=== PATIENT | male | born 1955 | race Caucasian/White ===

== ENCOUNTER 2017-05-31 15:28 | Inpatient (IN) | payer OTHER ==
--- NOTE | 2017-05-31 15:40 | CPEKG ---
Heart Rate: 77 RR Interval: 779 P-R Interval: 200 QRSD Interval: 98 QT Interval: 396 QTC Interval: 449 P Cross: 53 QRS Cross: -47 T Wave Cross: 25 EKG Severity - ABNORMAL ECG - EKG Impression: SINUS RHYTHM EKG Impression: PROBABLE LEFT ATRIAL ABNORMALITY EKG Impression: LEFT ANTERIOR FASCICULAR BLOCK EKG Impression: CONSIDER ANTEROSEPTAL INFARCT Electronically Signed By: Rashida Thomas 31-May-2017 22:33:45
[2017-05-31] MEDS ORDERED: ASPIRIN 81 MG CHEWABLE TAB PO ONE (15:41)
[2017-05-31] MEDS ORDERED: NS 500 ML IV ONE (15:41)
[2017-05-31] MEDS ORDERED: NITROGLYCERIN 2% 1 GM PACKET TP ONE (15:41)
[2017-05-31] MEDS ORDERED: HEPARIN 10,000 UNIT/10 ML MDV (1,000 UNIT/ML) IVP ONE (15:42)
[2017-05-31] MEDS ORDERED: HEPARIN/DEXTROSE 500 ML IV ONE (15:42)
[2017-05-31 15:51] LABS: PLATELET COUNT 155 10^3/uL (150-400)
--- NOTE | 2017-05-31 15:59 | EDPHY ---
H & P Time Seen by Provider: 05/31/17 15:38 HPI/ROS: HPI Chest pain. 61-year-old male by private vehicle. Patient has a history of coronary artery disease with RCA and LAD stents placed in the [facility]. Reports chest pain 2 weekends ago at rest while sleeping described as left upper chest dull aching radiation into the left shoulder and left arm. Reports a similar episode of chest pain this weekend while at rest but not as severe. Had blood work done yesterday at [facility]. 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 His troponin was elevated on yesterday's blood draw at 0.2. Dr. Massey of [facility] is planning on taking him to the research lab assistant tomorrow. Currently the patient describe some mild discomfort in his left arm but no chest pain and no shortness of breath. Cardiology has requested that we start the patient on a heparin drip in the emergency department, apply 1 in of nitropaste to his chest wall, repeat EKG and blood work and admit him to the hospitalist service. His blood pressure was noted to be high this morning. He takes 25 mg of metoprolol and 10 mg of lisinopril daily. Prior to coming to the emergency department his physician asked him to take his usual dose of metoprolol and lisinopril which she did. ROS: Constitutional: No fever, no chills. No weakness. Eyes: No discharge. No changes in vision. ENT: No sore throat. No nasal congestion or rhinorrhea. Respiratory: No cough. No shortness of breath. Cardiac: As above, no palpitations. Gastrointestinal: No abdominal pain, no vomiting, no diarrhea. Genitourinary: No hematuria. No dysuria or increased frequency with urination. Musculoskeletal: No back pain. No neck pain. As above. No myalgias or arthralgias. Skin: No rashes. Neurological: No headache. No focal weakness or altered sensation. Past medical history: As above. Also includes type 1 diabetes, hypertension, macular degeneration. Social history: He is here by himself. Nonsmoker. Denies alcohol. He recently moved to this area from the [facility]. All of his previous care was in the [facility]. Physical Exam: General Appearance: Alert, no distress. Large man, obese habitus. This patient is responding to questions appropriately and in full sentences. This patient appears well-hydrated and well-nourished. Eyes: Pupils equal and round no pallor or injection. No lid edema, erythema or injection. Respiratory: There are no retractions, lungs are clear to auscultation with good air movement bilaterally. Cardiovascular: Regular rate and rhythm. Heart sounds are distant. No murmur. Gastrointestinal: Abdomen is soft and nontender, no masses, bowel sounds normal. No focal tenderness at McBurney's point. No Johnson sign. Neurological: Motor sensory function is grossly intact. Cranial nerves are normal. Gait is normal. Skin: Warm and dry, no rashes. Musculoskeletal: Neck is supple and nontender. Extremities are symmetrical. All joints range without pain or impingement. Psychiatric: No agitation. No depression. Database: EKG: EKG time is 3:38 p.m.; EKG shows a narrow complex normal sinus rhythm with a ventricular rate of 77. The NM, QRS, QT intervals are within normal limits. There are no ST-T wave changes indicative of ischemic or injury pattern. QS waves noted in V1 and V2. Left anterior fascicular block noted. No evidence of right heart strain. Interpreted by me. Imaging: Chest x-ray AP portable; the cardiac mediastinal silhouette is unremarkable. No evidence of infiltrate or pneumothorax. No acute cardiopulmonary disease process noted. Interpreted by me. Procedures: Emergency department course: IV placed. Vital signs were reviewed. Patient given 324 mg of chewed aspirin. 1 inch of nitropaste applied to the chest wall. Patient will be started on IV heparin shortly. EKG obtained and reviewed by myself. 5:45 p.m., patient re-evaluated, resting comfortably at this time. Results of emergency department workup discussed. He is currently on his heparin drip. He does not have any chest pain currently. 5:50 p.m., spoke with on-call hospitalist, Dr. Kang, case discussed in detail with him. He accepts this patient for admission. Cardiology to consult. Patient scheduled for PCI tomorrow. Patient admitted in stable and improved condition to telemetry. Differential Diagnosis: The differential diagnosis on this patient includes but is not limited to acute coronary syndrome, myocardial infarction. Aortic dissection, myocarditis, pericarditis, pulmonary embolism unlikely. This represents a partial list of diagnoses considered. These considerations are based on history, physical exam , past history, reassessment and diagnostic testing. Smoking Status: Never smoked Constitutional: Initial Vital Signs Temperature (C) 36.8 C 05/31/17 15:40 Heart Rate 78 05/31/17 15:40 Respiratory Rate 16 05/31/17 15:40 Blood Pressure 158/91 H 05/31/17 15:40 O2 Sat (%) 99 05/31/17 15:40 O2 Delivery Mode Room Air Allergies/Adverse Reactions: cyclobenzaprine [From Flexeril] Allergy (Verified 05/31/17 15:37) Rsskdtt-[id number]-[id number] Reductase Inhibitor Allergy (Verified 05/31/17 15:37) Home Medications: Medication Instructions Recorded Lantus 05/31/17 novoLOG 05/31/17 traMADol 05/31/17 Medical Decision Making - Diagnostics Imaging Results: Imaging Impressions Chest X-Ray 05/31/17 15:42 Impression: Chest negative for acute cardiopulmonary abnormality. Peribronchial thickening may reflect airways disease. - Data Points Laboratory Results: Laboratory Results 05/31/17 15:43 05/31/17 15:43 05/31/17 05/31/17 05/31/17 15:43 15:43 15:43 WBC 8.42 10^3/uL 10^3/uL (3.80-9.50) RBC 4.95 10^6/uL 10^6/uL (4.40-6.38) Hgb 16.3 g/dL g/dL (13.7-17.5) Hct 46.1 % % (40.0-51.0) MCV 93.1 fL fL (81.5-99.8) MCH 32.9 pg pg (27.9-34.1) MCHC 35.4 g/dL g/dL (32.4-36.7) RDW 12.4 % % (11.5-15.2) Plt Count 155 10^3/uL 10^3/uL (150-400) MPV 8.9 fL fL (8.7-11.7) Neut % (Auto) 46.5 % % (39.3-74.2) Lymph % (Auto) 40.6 % % (15.0-45.0) [place] % (Auto) 9.3 % % (4.5-13.0) Eos % (Auto) 2.6 % % (0.6-7.6) Baso % (Auto) 0.8 % % (0.3-1.7) Nucleat RBC Rel Count 0.0 % % (0.0-0.2) Absolute Neuts (auto) 3.91 10^3/uL 10^3/uL (1.70-6.50) Absolute Lymphs (auto) 3.42 10^3/uL H 10^3/uL (1.00-3.00) Absolute Monos (auto) 0.78 10^3/uL 10^3/uL (0.30-0.80) Absolute Eos (auto) 0.22 10^3/uL 10^3/uL (0.03-0.40) Absolute Basos (auto) 0.07 10^3/uL 10^3/uL (0.02-0.10) Absolute Nucleated RBC 0.00 10^3/uL 10^3/uL (0-0.01) Immature Gran % 0.2 % % (0.0-1.1) Immature Gran # 0.02 10^3/uL 10^3/uL (0.00-0.10) PT 13.5 SEC SEC (12.0-15.0) INR 1.01 (0.83-1.16) APTT 29.2 SEC SEC (23.0-38.0) Sodium 141 mEq/L mEq/L (135-145) Potassium 4.2 mEq/L mEq/L (3.5-5.2) Chloride 104 mEq/L mEq/L (97-110) Carbon Dioxide 23 mEq/l mEq/l (22-31) Anion Gap 14 mEq/L mEq/L (8-16) BUN 11 mg/dL mg/dL (7-23) Creatinine 0.8 mg/dL mg/dL (0.7-1.3) Estimated GFR > 60 Glucose 103 mg/dL H mg/dL (70-100) Calcium 9.5 mg/dL mg/dL (8.5-10.4) Creatine Kinase 246 IU/L H IU/L (0-224) CK-MB (CK-2) Fraction 3.55 ng/mL H ng/mL (0.00-3.19) CK-MB (CK-2) % 1.4 % % (0.0-4.0) Creatine Kinase Interp NEGATIVE (NEGATIVE) Troponin I 0.104 ng/mL H ng/mL (0.000-0.034) Medications Given: Discontinued Medications Aspirin (Aspirin) 324 mg PO EDNOW ONE Stop: 05/31/17 15:42 Last Admin: 05/31/17 15:58 Dose: 324 mg Heparin Sodium (Porcine) (Heparin Injection) 0 unit IVP EDNOW ONE PRN Reason: Protocol Stop: 05/31/17 15:43 Last Admin: 05/31/17 16:07 Dose: 7,000 units Sodium Chloride (Ns) 500 mls @ 1,000 mls/hr IV EDNOW ONE PRN Reason: Protocol Stop: 05/31/17 16:10 Last Admin: 05/31/17 17:13 Dose: 500 mls Heparin Sodium (Porcine) (Heparin 50 Units/Ml (Premix)) 500 mls @ 0 mls/hr IV EDNOW ONE; Per Protocol PRN Reason: Protocol Stop: 05/31/17 15:43 Last Admin: 05/31/17 16:08 Dose: 500 mls Nitroglycerin (Nitro-Bid 2%) 1 inch TP EDNOW ONE Stop: 05/31/17 15:42 Last Admin: 05/31/17 15:57 Dose: 1 inch Departure - Departure Disposition: [facility] Inpatient Acute Clinical Impression: Chest pain, History of coronary artery disease Referrals: Danny Abernathy MD [Primary Care Provider] - As per Instructions
[2017-05-31 16:03] LABS: INR 1.01 (0.83-1.16); PROTIME(PATIENT) 13.5 SEC (12.0-15.0)
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
[2017-05-31 17:10] LABS: CREATINE KINASE 246 IU/L (0-224)
[2017-05-31] MEDS ORDERED: D50W 25 GM/50 ML VIAL IVP PRN (18:50)
[2017-05-31] MEDS ORDERED: ACETAMINOPHEN 325 MG TAB PO PRN (18:51)
[2017-05-31] MEDS ORDERED: ONDANSETRON DISINTEGRATING 4 MG TAB PO PRN (18:51)
[2017-05-31] MEDS ORDERED: ONDANSETRON 4 MG/2 ML VIAL IVP PRN (18:51)
[2017-05-31] MEDS ORDERED: HEPARIN 10,000 UNIT/10 ML MDV (1,000 UNIT/ML) IVP PRN (18:52)
[2017-05-31] MEDS ORDERED: HEPARIN/DEXTROSE 500 ML IV SCH (19:00)
--- NOTE | 2017-05-31 19:26 | PDGENHP ---
History and Physical - Chief Complaint CP, abnormal troponin - History of Present Illness This is a morbidly obese male with hx of CAD and DMII who has been having CP over the past few weeks and had a Trop with a level of 0.2 that came back to his PCP today and he was told to present to the E.D. He has a hx of multi vessel disease and [place]. He recently moved from [place] to [place]. He was seen by Cards in the E.D. and he will have a Cath tomorrow. Trop here is 0.104. EKG shows some q waves in the inferior and lateral leads. 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: early CV disease Data/labs: per above History Information - Allergies/Home Medication List Allergies/Adverse Reactions: cyclobenzaprine [From Flexeril] Allergy (Verified 05/31/17 15:37) Cwbbygv-Sko-Waf Reductase Inhibitor Allergy (Verified 05/31/17 15:37) Home Medications: Lantus 05/31/17 [Last Taken Unknown] novoLOG 05/31/17 [Last Taken Unknown] traMADol 05/31/17 [Last Taken Unknown] I have personally reviewed and updated: medical history, social history - Social History Smoking Status: Never smoked Review of Systems Review of Systems: ROS: 10pt was reviewed & negative except for what was stated in HPI & below Physical Exam Physical Exam: Temp Pulse Resp BP Pulse Ox 36.6 C 72 18 142/86 H 96 05/31/17 18:38 05/31/17 18:38 05/31/17 18:38 05/31/17 18:38 05/31/17 18:38 Constitutional: no apparent distress Eyes: PERRL, EOMI Ears, Nose, Mouth, Throat: moist mucous membranes, hearing normal Cardiovascular: regular rate and rhythym, No JVD, No edema Respiratory: no respiratory distress, no rales or rhonchi Gastrointestinal: normoactive bowel sounds, soft, non-tender abdomen Skin: warm Musculoskeletal: full muscle strength Neurologic: AAOx3 Psychiatric: interacting appropriately, not anxious, not encephalopathic, thought process linear Lab Data & Imaging Review 05/31/17 15:43 05/31/17 15:43 WBC 8.42 10^3/uL (3.80-9.50) 05/31/17 15:43 RBC 4.95 10^6/uL (4.40-6.38) 05/31/17 15:43 Hgb 16.3 g/dL (13.7-17.5) 05/31/17 15:43 Hct 46.1 % (40.0-51.0) 05/31/17 15:43 MCV 93.1 fL (81.5-99.8) 05/31/17 15:43 MCH 32.9 pg (27.9-34.1) 05/31/17 15:43 MCHC 35.4 g/dL (32.4-36.7) 05/31/17 15:43 RDW 12.4 % (11.5-15.2) 05/31/17 15:43 Plt Count 155 10^3/uL (150-400) 05/31/17 15:43 MPV 8.9 fL (8.7-11.7) 05/31/17 15:43 Neut % (Auto) 46.5 % (39.3-74.2) 05/31/17 15:43 Lymph % (Auto) 40.6 % (15.0-45.0) 05/31/17 15:43 [place] % (Auto) 9.3 % (4.5-13.0) 05/31/17 15:43 Eos % (Auto) 2.6 % (0.6-7.6) 05/31/17 15:43 Baso % (Auto) 0.8 % (0.3-1.7) 05/31/17 15:43 Nucleat RBC Rel Count 0.0 % (0.0-0.2) 05/31/17 15:43 Absolute Neuts (auto) 3.91 10^3/uL (1.70-6.50) 05/31/17 15:43 Absolute Lymphs (auto) 3.42 10^3/uL (1.00-3.00) H 05/31/17 15:43 Absolute Monos (auto) 0.78 10^3/uL (0.30-0.80) 05/31/17 15:43 Absolute Eos (auto) 0.22 10^3/uL (0.03-0.40) 05/31/17 15:43 Absolute Basos (auto) 0.07 10^3/uL (0.02-0.10) 05/31/17 15:43 Absolute Nucleated RBC 0.00 10^3/uL (0-0.01) 05/31/17 15:43 Immature Gran % 0.2 % (0.0-1.1) 05/31/17 15:43 Immature Gran # 0.02 10^3/uL (0.00-0.10) 05/31/17 15:43 PT 13.5 SEC (12.0-15.0) 05/31/17 15:43 INR 1.01 (0.83-1.16) 05/31/17 15:43 APTT 29.2 SEC (23.0-38.0) 05/31/17 15:43 Sodium 141 mEq/L (135-145) 05/31/17 15:43 Potassium 4.2 mEq/L (3.5-5.2) 05/31/17 15:43 Chloride 104 mEq/L (97-110) 05/31/17 15:43 Carbon Dioxide 23 mEq/l (22-31) 05/31/17 15:43 Anion Gap 14 mEq/L (8-16) 05/31/17 15:43 BUN 11 mg/dL (7-23) 05/31/17 15:43 Creatinine 0.8 mg/dL (0.7-1.3) 05/31/17 15:43 Estimated GFR > 60 05/31/17 15:43 Glucose 103 mg/dL (70-100) H 05/31/17 15:43 Calcium 9.5 mg/dL (8.5-10.4) 05/31/17 15:43 Creatine Kinase 246 IU/L (0-224) H 05/31/17 15:43 CK-MB (CK-2) Fraction 3.55 ng/mL (0.00-3.19) H 05/31/17 15:43 CK-MB (CK-2) % 1.4 % (0.0-4.0) 05/31/17 15:43 Creatine Kinase Interp NEGATIVE (NEGATIVE) 05/31/17 15:43 Troponin I 0.104 ng/mL (0.000-0.034) H 05/31/17 15:43 Assessment & Plan Assessment: # Unstable Angina # CAD # Abnormal Trop # HTN # DMII, insulin dependent # Bilateral nguyễn to feet (recent) # Peripheral neuropathy due to DM Plan: Admit Plan for Cath tomorrow in the meanwhile, we will continue Heparin which was started in the E.D Serial enzymes, TTE, telemety Aspirin received in the E.D. Diet for now but NPO at midnight Will cover with Lantus tonigh 20 units he reports his dose is 20 units bid. meds list is still being obtained and will need to be reconciled check labs for risk factors Wound care Total CCT in this high risk patient with unstable angina requiring anticoagulation is 45 minutes
[2017-05-31] MEDS: INSULIN GLARGINE 100 UNITS/ML UNIT SC SCH (20:52)
[2017-05-31] MEDS: NITROGLYCERIN 2% 1 GM PACKET TP SCH (20:53)
[2017-06-01] MEDS: NITROGLYCERIN 2% 1 GM PACKET TP SCH ×3 (02:04→15:39)
[2017-06-01 06:47] LABS: PLATELET COUNT 142 10^3/uL (150-400)
[2017-06-01] MEDS: INSULIN LISPRO 100 UNIT/ML SC SCH ×3 (09:50→17:41)
--- NOTE | 2017-06-01 10:22 | HOSPPROG ---
Hospitalist Progress Note Assessment/Plan: #Unstable angina: Cath today with 3 DE S to posterior descending artery -Plavis, ASA, BB, statin #Diabetes: glargine, SSI #HTN: controlled on home meds #Morbid obesity: counseled on diet and exercise #HLD: statin #Neuropathy #h/o CVA: statin, ASA, BB #Diet: cardiac #Disp: warrants inpt admission for cath and post-procedure telemetry. Can DC tomorrow if clinically stable Subjective: s/p cath with no CP Objective: Vital Signs Temp Pulse Resp BP Pulse Ox 36.6 C 72 16 98/50 L 97 06/01/17 07:22 06/01/17 07:22 06/01/17 07:22 06/01/17 07:22 06/01/17 07:22 Laboratory Results 06/01/17 06:30 06/01/17 06:30 05/31/17 06/01/17 06/02/17 05:59 05:59 05:59 Intake Total 1136 Output Total 2800 Balance -1664 PT 13.5 SEC (12.0-15.0) 05/31/17 15:43 INR 1.01 (0.83-1.16) 05/31/17 15:43 - Physical Exam Constitutional: obese Eyes: PERRL Ears, Nose, Mouth, Throat: moist mucous membranes Cardiovascular: regular rate and rhythym, no murmur, rub, or gallop Respiratory: no respiratory distress Gastrointestinal: normoactive bowel sounds Genitourinary: No thomas in urethra Skin: warm Musculoskeletal: full muscle strength, other (right radial access, good radial pulse) Neurologic: AAOx3, CN II-XII Intact Psychiatric: interacting appropriately ICD10 Worksheet Patient Problems: Problems Problem Status Onset Chest pain Acute History of coronary artery disease Acute
[2017-06-01] MEDS ORDERED: DIAZEPAM 5 MG TAB PO ONE (10:38)
[2017-06-01] MEDS ORDERED: FAMOTIDINE 20 MG TAB PO ONE (10:38)
[2017-06-01] MEDS ORDERED: TEMAZEPAM 15 MG CAP PO PRN (10:38)
[2017-06-01] MEDS ORDERED: ASPIRIN EC 325 MG TAB PO ONE ×2 (10:38→10:40)
[2017-06-01] MEDS ORDERED: diphenhydrAMINE 25 MG CAP PO ONE ×2 (10:38→10:40)
--- NOTE | 2017-06-01 10:39 | PDPROPOC ---
Sedation Plan of Care Sedation Plan of Care: vital signs stable, mental status noted, patient educated of risks, benefits, alternatives, patient can tolerate sedation ASA Classification: ASA 2 Planned drugs: fentanyl, midazolam Mallampati Score: Class 1 Mallampati Reference Image: Patient passed 3-3-2 rule?: Yes
--- NOTE | 2017-06-01 10:39 | PDHPUP ---
History & Physical Update H&P update statement: This history and physical update is based on an assessment of the patient which was completed after admission or registration (within 24 hours), but prior to the surgery/procedure. H&P update: H&P reviewed & patient examined, no change in patient's condition since H&P completed
[2017-06-01] MEDS ORDERED: FAMOTIDINE 20 MG TAB ONE (10:40)
[2017-06-01] MEDS ORDERED: DIAZEPAM 5 MG TAB ONE (10:40)
[2017-06-01] MEDS ORDERED: NS 1,000 ML IV SCH (10:45)
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
--- NOTE | 2017-06-01 11:57 | ASMTCASEMG ---
Living Arrangements What is your living Answers: With Spouse arrangement? Who do you live with? Type Of Residence What kind of residence do Answers: House you live in? Discharge Plan Comments Coordination Status Comments Notes: Discussed pts case in morning rounds. Pt is a 61 y/o man admitted for chest pain and abnormal troponin. Pt will most likely have a cath today. Pt moved here recently from [place]. Pt will most likely d/c independent when medically stable. No therapies ordered at this time. CM available for changes. Plan: Independent Date Signed: 06/01/2017 11:56 AM Electronically Signed By:CHRIS Olsen
[2017-06-01] MEDS ORDERED: fentaNYL 100 MCG/2 ML INJ ONE (12:25)
[2017-06-01] MEDS ORDERED: LIDOCAINE 1% 300 MG/30 ML SDV ONE (12:25)
[2017-06-01] MEDS ORDERED: VERAPAMIL 5 MG/2 ML VIAL ONE (12:25)
[2017-06-01] MEDS ORDERED: MIDAZOLAM 2 MG/2 ML VIAL ONE (12:25)
[2017-06-01] MEDS ORDERED: IOPAMIDOL (ISOVUE-370) 150 ML BTL IV ONE ×2 (12:25→13:29)
[2017-06-01] MEDS ORDERED: HEPARIN 10,000 UNIT/10 ML MDV (1,000 UNIT/ML) ONE (12:25)
[2017-06-01] MEDS ORDERED: CLOPIDOGREL BISULFATE 75 MG TAB ONE (13:48)
[2017-06-01] MEDS ORDERED: CLOPIDOGREL BISULFATE 75 MG TAB PO ONE (13:51)
[2017-06-01] MEDS ORDERED: ATROPINE SULFATE 1 MG/10 ML SYR IVP PRN (13:51)
--- NOTE | 2017-06-01 13:58 | PDDXCAT ---
Diagnostic Cath Note - . Date: 06/01/17 Hydroelectric Systems Technician: Bryson Indication: CCC Class III and IV angina on medical treatment - Procedure Access: right wrist Procedure: left heart catheterization, coronary angiography, left ventriculogram - Materials Left Heart Cath size: 5F Left Heart Cath materials: JL4.0, JR4.0, pigtail - Findings-Left Heart Catheterization LM: Unobstructed LAD: Proximal stent widely patent. Luminal irregularities of up to 40% LCX: Stent widely patent. Proximal to the stent 50% stenosis. Distal OM 50% stenosis RCA: Dominant vessel: Downward takeoff: Occlusion of the posterior descending coronary artery in its midportion EDP: 26 mm of mercury LVEF: 45% with lateral akinesis Wall motion: Lateral akinesis Complications: None Estimated blood loss: <50ml Closure method: TR Band Assessment: Accelerated angina with occlusion of the posterior descending coronary artery. Widely patent LAD and circumflex artery stents with 50% stenosis of the circumflex residual. Up to 40% residual stenosis of the LAD. Mild reduction LV systolic function ejection fraction 45% with lateral akinesis. Elevated filling pressures. Plan: PCI of the posterior descending coronary artery. Intervention: Procedure: PCI and stenting of the posterior descending coronary artery with 3 2.25 synergy stents. Indications: Accelerated angina with elevation in troponin clinical symptomatology and heart failure. After reviewing diagnostic angiograms it was elected to proceed with urgent PCI. Patient was anticoagulated with heparin. Therapeutic ACT was confirmed. Using a 5 Czech JR4 guiding catheter the right coronary selectively intubated. Using a 0.014 sharepoint designer developer 50 wire the posterior descending coronary stenosis was crossed and the wire placed in the distal vessel. Lesions were pre-dilated with a 2 mm balloon. 2.25 x 16 mm synergy stent was placed distally. A 2nd 2.25 x 20 mm synergy stent was placed in an open fashion. A 2.25 x 16 was placed to the origin. Stents were post dilated with stent balloon. Repeat angiogram showed CHERYL grade 3 flow. Conclusions accelerated angina status post successful PCI and stenting of the posterior descending coronary artery. Patient Problems: Problems Problem Status Onset Chest pain Acute History of coronary artery disease Acute
--- NOTE | 2017-06-01 14:23 | CPEKG ---
Heart Rate: 71 RR Interval: 845 P-R Interval: 212 QRSD Interval: 94 QT Interval: 408 QTC Interval: 444 P [place]: 53 QRS [place]: -51 T Wave [place]: 16 EKG Severity - ABNORMAL ECG - EKG Impression: SINUS RHYTHM EKG Impression: LEFT ANTERIOR FASCICULAR BLOCK EKG Impression: CONSIDER ANTEROSEPTAL INFARCT Electronically Signed By: Jose Vicente 03-Jun-2017 08:27:20
[2017-06-01] MEDS: FUROSEMIDE 20 MG TAB PO SCH (16:49)
[2017-06-01] MEDS: CARVEDILOL 3.125 MG TAB PO SCH (17:58)
[2017-06-01] MEDS: INSULIN GLARGINE 100 UNITS/ML UNIT SC SCH (21:16)
[2017-06-02 04:05] LABS: PLATELET COUNT 148 10^3/uL (150-400)
[2017-06-02 04:26] VITALS: RESP 16
[2017-06-02] MEDS ORDERED: CLOPIDOGREL BISULFATE 75 MG TAB PO SCH (09:00)
[2017-06-02] MEDS ORDERED: LISINOPRIL 10 MG TAB PO SCH (09:00)
[2017-06-02] MEDS ORDERED: ASPIRIN EC 325 MG TAB PO SCH (09:00)
[2017-06-02] MEDS ORDERED: METOPROLOL SUCCINATE XR 25 MG TAB PO SCH (09:00)
--- NOTE | 2017-06-02 09:09 | CPEKG ---
Heart Rate: 83 RR Interval: 723 P-R Interval: 196 QRSD Interval: 92 QT Interval: 380 QTC Interval: 447 P [place]: 46 QRS [place]: -56 T Wave [place]: 24 EKG Severity - ABNORMAL ECG - EKG Impression: SINUS RHYTHM EKG Impression: PROBABLE LEFT ATRIAL ABNORMALITY EKG Impression: LEFT ANTERIOR FASCICULAR BLOCK EKG Impression: ANTERIOR INFARCT, OLD Electronically Signed By: Jose Vicente 03-Jun-2017 08:27:24
[2017-06-02] MEDS: INSULIN LISPRO 100 UNIT/ML SC SCH ×2 (10:06→14:40)
[2017-06-02] MEDS: FUROSEMIDE 20 MG TAB PO SCH ×2 (10:31→15:31)
[2017-06-02] MEDS: CARVEDILOL 3.125 MG TAB PO SCH (10:32)
[2017-06-02 11:03] VITALS: BP 131/74; PULSE 78; TEMP 98.1; O2SAT 94
--- NOTE | 2017-06-02 11:05 | SOAPPROG ---
A[facility] Progress Note Assessment/Plan: Assessment: 1. Non-Q-wave myocardial infarction with PCI and stenting of the posterior descending coronary artery. 2. Moderate ischemic cardiomyopathy. 3. Acute on chronic systolic heart failure with elevated filling pressures. 4. Hyperlipidemia. 5. Type 2 diabetes. 6. Hypertension. Patient tolerated procedure yesterday well and is feeling back to his usual state of good health without angina. He is on good medical therapy. Patient can be discharged home with follow-up with Cardiology. He has been referred to primary care for improvement in his A1c. Questions were answered with him his and his son. Plan: 06/02/17 11:03 Subjective: Feeling well without chest pain, shortness of breath, PND, orthopnea. Puncture site healing well. Objective: Vital Signs Temp Pulse Resp BP Pulse Ox 36.7 C 78 16 131/74 H 94 06/02/17 11:00 06/02/17 11:00 06/02/17 11:00 06/02/17 11:00 06/02/17 11:00 Laboratory Results 06/02/17 03:37 06/02/17 03:37 06/01/17 06/02/17 06/03/17 05:59 05:59 05:59 Intake Total 1136 1250 500 Output Total 2800 3650 Balance -1664 -2400 500 PT 13.5 SEC (12.0-15.0) 05/31/17 15:43 INR 1.01 (0.83-1.16) 05/31/17 15:43 - Time Spent With Patient Time Spent With Patient: 25 Physical Exam - Physical Exam General Appearance: alert, no apparent distress EENT: normal ENT inspection Neck: full range of motion, supple Respiratory: lungs clear Cardiac/Chest: regular rate, rhythm, gallop, No edema, No JVD Abdomen: normal bowel sounds, non-tender ICD10 Worksheet Patient Problems: Problems Problem Status Onset Chest pain Acute History of coronary artery disease Acute
--- NOTE | 2017-06-02 11:23 | PDMN ---
Medical Necessity Medical necessity: M40 angina- unstable angina- accelerated angina with elevation in Trop-clinical symptomology and heart failure, urgent PCI of stenting of LAD M230 ID- non Q wave ID
--- NOTE | 2017-06-02 12:05 | ASDISCHSUM ---
Discharge Information Plan Status:Home with No Needs Medically Cleared to Leave:06/01/2017 Discharge Date:06/01/2017 CM D/C Disposition:Home, Routine, Self-Care ADT D/C Disposition: Projected Discharge Date:06/01/2017 Transportation at D/C: Discharge Delay Reason: Follow-Up Date:06/01/2017 Discharge Slot: Final Diagnosis: Placement Information Patient Contact Information Contact Name:EVETTE Relationship: Address: Work Phone: City: [facility] Phone: State/Zip Code: Email: [facility] Information [facility] Desc:[employer] [facility] Primary Plan Number:[id number] Secondary Plan Desc: Secondary Plan Number: Assessment Information [facility] Initial CM Assessment Living Arrangements What is your living Answers: With Spouse arrangement? Who do you live with? Type Of Residence What kind of residence do Answers: House you live in? Discharge Plan Comments Coordination Status Comments Notes: Discussed pts case in morning rounds. Pt is a 61 y/o man admitted for chest pain and abnormal troponin. Pt will most likely have a cath today. Pt moved here recently from [place]. Pt will most likely d/c independent when medically stable. No therapies ordered at this time. CM available for changes. Plan: Independent Date Signed: 06/01/2017 11:56 AM Electronically Signed By:CHRIS Olsen LACE LACE Length of stay for Answers: Less than 1 day current admission Acuity / Level of Answers: No Care: Did the patient have an inpatient admission? Comorbidities - select Answers: Other Notes: chest pain, acute all that apply coronary syndrome # of Emergency department Answers: 0 visits in the last 6 months Score: 1 Date Signed: 06/02/2017 12:04 PM Electronically Signed By:Josephine Tucker RN Intervention Information Intervention Type:*Incorrect Registration Date of Service:06/01/2017 09:54 AM Patient Type:Observation Staff Member:JADA Azar, Jackie Hours: Discipline: Severity: Comment: Intervention Type:Health Clinic Date of Service:06/02/2017 11:47 AM Patient Type:Inpatient Staff Member:JADA Tucker, Josephine Hours:0.25 Discipline: Severity: Comment:arranged appointment at Dr. Shellie zavala for 06/06 at 9:30 am.
--- NOTE | 2017-06-02 12:37 | PDDCSUM ---
Discharge Summary Discharge Summary: 61 YO MALE admitted with unstable angina. Found to have non q wave [place]. Had stenting of the posterior descending coronary artery. Has been cleared for d/c by cards he will establish care with his pcp for dm mgmt. DDx: 1. Non-Q-wave myocardial infarction with PCI and stenting of the posterior descending coronary artery. 2. Moderate ischemic cardiomyopathy. 3. Acute on chronic systolic heart failure with elevated filling pressures. 4. Hyperlipidemia. 5. Type 2 diabetes. 6. Hypertension. exam: VSS NAD AAOX3 RRR CTA B S/NT/ND NO LE EDEMA MEDS: SEE MED REC F/U: WITH PCP AND CARDS TOTAL TIME SPENT ON D/C INCLUDING DISCUSSION WITH CARDS IS 35 MINS
== END 2017-06-02 16:06 | disposition home or self-care (01) | DRG 246 ==
LOC: INTOOBSV 17:53 → F2W 18:25 → OBSVTOIN 06-01 17:00 → F2W 06-01 17:51
PROVIDERS: ADMIT Family Medicine; ATTEND Family Medicine
PROC: B2111ZZ Fluoroscopy of Multiple Coronary Arteries using Low Osmolar Contrast (ICD-10-PCS; principal; 2017-06-01)
PROC: 027036Z Dilation of Coronary Artery, One Artery with Three Drug-eluting Intraluminal Devices, Percutaneous Approach (ICD-10-PCS; principal; 2017-06-01)
PROC: 4A023N7 Measurement of Cardiac Sampling and Pressure, Left Heart, Percutaneous Approach (ICD-10-PCS; principal; 2017-06-01)
PROC: B2151ZZ Fluoroscopy of Left Heart using Low Osmolar Contrast (ICD-10-PCS; principal; 2017-06-01)
DX: I21.4 Non-ST elevation (NSTEMI) myocardial infarction (principal); I11.0 Hypertensive heart disease with heart failure; I50.23 Acute on chronic systolic (congestive) heart failure; I25.110 Atherosclerotic heart disease of native coronary artery with unstable angina pectoris; I25.5 Ischemic cardiomyopathy; E78.5 Hyperlipidemia, unspecified; E11.40 Type 2 diabetes mellitus with diabetic neuropathy, unspecified; E66.01 Morbid (severe) obesity due to excess calories; Z86.73 Personal history of transient ischemic attack (TIA), and cerebral infarction without residual deficits; Z79.4 Long term (current) use of insulin
CPT/HCPCS: 85520-90; 96365; 96366; C1725; C1769; C1874; C1887; C9600; G0378; J1644; J1815; J2250; J3010; Q9967

== ENCOUNTER 2018-07-06 13:13 | Inpatient (IN) | payer OTHER ==
[2018-07-06] MEDS ORDERED: DILTIAZEM HCL/D5W 125 ML IV ONE (13:38)
--- NOTE | 2018-07-06 13:40 | EDPHY ---
H & P Time Seen by Provider: 07/06/18 13:25 HPI/ROS: CHIEF COMPLAINT: Chest pain and palpitations HISTORY OF PRESENT ILLNESS: Patient has diabetes, history of 5 stents, history of palpitations but never documented atrial fibrillation. He was sitting at his desk at work today at 11:00 a.m. When he started having left-sided arm tingling with chest tightness and some shortness of breath. He also had intermittent palpitations with rapid irregular heart rate. Not better or worse with anything. He took 3 nitroglycerin and change the symptoms a little bit. Heart rate was varying between 58 and 120 beats per minute. REVIEW OF SYSTEMS: Eye: no change in vision ENT: no sore throat Cardiac: HPI Pulmonary: Short of breath with exertion for the last year Abdomen: no vomiting, diarrhea, abdominal pain Musculoskeletal: no back pain Skin: no rash Neuro: no headache Constitutional: no fever : no urinary symptoms A comprehensive 10 point review of systems is otherwise negative aside from elements mentioned in the history of present illness. PAST MEDICAL HISTORY: Includes coronary disease with stenting, diabetes, macular degeneration, psoriasis, hyperlipidemia. Diverticulitis, left thumb and knee surgery. 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 General Appearance: Alert and conversant, cooperative. Eyes: No scleral icterus. ENT, Mouth: Normal mucous membranes. Respiratory: Normal respiratory effort, breath sounds equal, lungs are clear to auscultation. Cardiovascular: Irregular rate and rhythm tachycardic. Gastrointestinal: Abdomen is soft and non tender. Neurological: Alert, face symmetric, normal motor and sensory in extremities. Skin: Warm and dry, no rashes. Musculoskeletal: No peripheral edema. Psychiatric: Not agitated. Emergency Department course/MDM: Patient presents with chest symptoms concerning for ischemic disease as well as rapid atrial fibrillation which is never been documented before. Diltiazem drip, aspirin, but awaiting full medication list from Cardiology to see if he is on anticoagulation other than Plavix. Admission hospitalist with cardiology consultation. Differential diagnosis considered for chest pain including but not limited to myocardial ischemia, aortic dissection, pericarditis, pulmonary embolus, chest wall pain, pleural inflammation and pulmonary infectious causes. 1404: [facility], [place] [facility]. Patient is on Plavix and Eliquis; Eliquis started after [employer] monitor showed Afib. No aspirin given in the emergency department. 1446: HR 95 on diltiazem drip. Smoking Status: Never smoked Constitutional: Initial Vital Signs Temperature (C) 36.5 C 07/06/18 13:16 Heart Rate 92 07/06/18 13:16 Respiratory Rate 18 07/06/18 13:16 Blood Pressure 119/75 07/06/18 13:16 O2 Sat (%) 97 07/06/18 13:16 O2 Delivery Mode Room Air Allergies/Adverse Reactions: Wrgrhfl-Jbh-Vss Reductase Inhibitor Allergy (Verified 07/06/18 14:15) Memory Problems Home Medications: Medication Instructions Recorded Lisinopril [Zestril 10 mg (*)] 10 mg PO DAILY 05/31/17 traMADol [Ultram 50 mg (*)] 50 mg PO BID 05/31/17 Carvedilol [Coreg (*)] 3.125 mg PO BIDMEAL #60 tab 06/02/17 Clopidogrel Bisulfate [Plavix (*)] 75 mg PO DAILY #60 tab 06/02/17 Furosemide [Lasix 20 MG (*)] 20 mg PO BID@0900,1500 #60 tab 06/02/17 Apixaban [Eliquis] 5 mg PO BID 07/06/18 Ergocalciferol [Vitamin D2 (*)] 50,000 unit PO MOFR 07/06/18 Insulin Glargine,Hum.rec.anlog 30 unit SQ HS 07/06/18 [Basaglar Kwikpen U-100] Insulin Lispro [Humalog] 12 unit SQ BID@09,18 07/06/18 Insulin Lispro [Humalog] 14 unit SQ DAILY@12 07/06/18 Metoprolol Succinate Xr [Toprol Xl 50 mg PO DAILY 07/06/18 50 mg (*)] Nitroglycerin [Nitrostat 0.4 mg 0.4 mg SL Q5M PRN 07/06/18 (*)] Potassium Cl [Klor-Con 20 meq (*)] 20 meq PO DAILY 07/06/18 Medical Decision Making - Diagnostics Imaging Results: Imaging Impressions Chest X-Ray 07/06/18 13:38 Impression: No acute findings in the chest. Imaging: I viewed and interpreted images myself Consult/Admit Bed Type: [place] [id number] Critical Care Time: Critical care time spent by me, Dr. Arnold, exclusively with the care of this patient was 30 minutes, exclusive of PA or TITLE CURATOR time and exclusive of separate procedures. The organ system at risk was cardiovascular and I ordered cardiology consultation, IV diltiazem, multiple diagnostics to stabilize the patient and prevent worsening of the patient's condition. - Data Points Laboratory Results: Laboratory Results 07/06/18 13:30 07/06/18 07/06/18 07/06/18 13:37 13:30 13:30 WBC Pending RBC Pending Hgb Pending Hct Pending MCV Pending MCH Pending MCHC Pending RDW Pending Plt Count Pending MPV Pending Neut % (Auto) Pending Lymph % (Auto) Pending Rock % (Auto) Pending Eos % (Auto) Pending Baso % (Auto) Pending Nucleat RBC Rel Count Pending Absolute Neuts (auto) Pending Absolute Lymphs (auto) Pending Absolute Monos (auto) Pending Absolute Eos (auto) Pending Absolute Basos (auto) Pending Absolute Nucleated RBC Pending Immature Gran % Pending Immature Gran # Pending Sodium 135 mEq/L mEq/L (135-145) Potassium 4.2 mEq/L mEq/L (3.5-5.2) Chloride 105 mEq/L mEq/L (97-110) Carbon Dioxide 17 mEq/l L mEq/l (22-31) Anion Gap 13 mEq/L mEq/L (6-14) BUN 14 mg/dL mg/dL (7-23) Creatinine 1.0 mg/dL mg/dL (0.7-1.3) Estimated GFR > 60 Glucose 228 mg/dL H mg/dL (70-100) Calcium 9.2 mg/dL mg/dL (8.5-10.4) POC Troponin I 0.00 ng/mL ng/mL (0.00-0.08) Medications Given: Discontinued Medications Diltiazem/Dextrose (Diltiazem 125mg/125ml (Premix)) 125 mls @ 0 mls/hr IV EDNOW ONE; As Directed PRN Reason: Protocol Stop: 07/06/18 13:39 Last Admin: 07/06/18 14:10 Dose: 125 mls Point of Care Test Results: Chemistry 07/06/18 13:37 POC Troponin I 0.00 ng/mL ng/mL (0.00-0.08) Departure - Departure Disposition: [facility] Inpatient Acute Clinical Impression: Chest pain Qualifiers: Chest pain type: unspecified Qualified Code(s): R07.9 - Chest pain, unspecified Atrial fibrillation Qualifiers: Atrial fibrillation type: paroxysmal Qualified Code(s): I48.0 - Paroxysmal atrial fibrillation Condition: Good
--- NOTE | 2018-07-06 14:23 | CPEKG ---
Test Reason : OPEN Blood Pressure : / mmHG Vent. Rate : 113 BPM Atrial Rate : 000 BPM P-R Int : 134 ms QRS Dur : 098 ms QT Int : 338 ms P-R-T Axes : 000 -43 056 degrees QTc Int : 464 ms Atrial fibrillation Ventricular premature complex Left axis deviation Anteroseptal infarct, old Confirmed by Handy Arnold ([id number]) on 07/06/2018 2:23:21 PM Referred By: Handy Arnold Confirmed By:Handy Arnold
[2018-07-06] MEDS ORDERED: ONDANSETRON DISINTEGRATING 4 MG TAB PO PRN (14:48)
[2018-07-06] MEDS ORDERED: ACETAMINOPHEN 325 MG TAB PO PRN (14:48)
[2018-07-06] MEDS ORDERED: ONDANSETRON 4 MG/2 ML VIAL IVP PRN (14:48)
[2018-07-06] MEDS ORDERED: NITROGLYCERIN 0.4 MG BTL SL PRN (14:49)
[2018-07-06] MEDS ORDERED: METOPROLOL SUCCINATE XR 25 MG TAB PO ONE (14:50)
[2018-07-06 14:51] LABS: PLATELET COUNT 193 10^3/uL (150-400)
--- NOTE | 2018-07-06 15:29 | GHP ---
[f rep st] HISTORY AND PHYSICAL DATE OF ADMISSION: 07/06/2018 The patient is a 62-year-old gentleman history of diabetes, coronary artery disease, atrial fibrillat ion, sleep apnea, who presents with chest pain. He had an episode of chest pain that brought him to [facility] recently. It sounds like he had just a cursory workup possibly, where he was ruled ou t and sent home. His last angiogram in February 2018 showed patent stents in LAD and left circumflex , and a stent to the PDA. He describes his chest pain today as different than that anginal chest pain. That anginal chest pain was back of his left arm pain and back pain. This is a pressure in his chest. It seems to correlat e with atrial fibrillation, although he is not entirely certain that that is the case. He has not had lower extremity edema. He has not had fever, chills, or cough. He has chronic dyspne a on exertion attributed to obesity and apparent altitude intolerance. [facility] [place]. When I asked the patient he if he had ever been to the mountains, he said he has been up there a couple times, and did not particularly tolerate it. REVIEW OF SYSTEMS: Complete 10-point review of systems conducted. Negative except as noted in the H PI. PAST MEDICAL HISTORY: Diabetes, atrial fibrillation, coronary artery disease, hypertension, obstruct deysi sleep apnea. It sounds like he has been struggling a bit with the mask. ALLERGIES: Statins. HOME MEDICATIONS: Apixaban, carvedilol, clopidogrel, ergocalciferol, furosemide, Lantus 30 h.s., lis pro sliding scale with 12 in the morning and in the evening and 14 at lunch, lisinopril, metoprolol-X L 50 daily, nitroglycerin, potassium, tramadol. SOCIAL HISTORY: No tobacco, no alcohol. 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 FAMILY HISTORY: Notable for coronary disease. Mother had pancreatic cancer. PHYSICAL EXAMINATION: VITAL SIGNS: Temp 36.5, blood pressure 119/75, pulse 92-103, breathing 18 zaire es a minute, 97% on room air. GENERAL: No acute distress. HEENT: Sclerae anicteric. Oropharynx c lear. Mucous membranes moist. NECK: Supple without lymphadenopathy or JVD. LUNGS: Clear to auscu ltation bilaterally. HEART: S1, S2. ABDOMEN: Soft, nontender, nondistended. LOWER EXTREMITIES: No edema. Calves are nontender. SKIN: Without rash. NEUROLOGIC: Nonfocal. Chest x-ray interpreted by me shows no acute cardiopulmonary disease. EKG shows AFib at 113 with lef t axis deviation. There are no ST or T-wave changes. I discussed the case with Dr. Handy Arnold. ASSESSMENT/PLAN: A 62-year-old gentleman with chest pain. 1. Chest pain. It does not sound like this is his anginal equivalent, but given a diabetic, it is w orth considering. It sounds like he was due for an outpatient stress test. Cardiology will see him. I presume they will order that, but I will cycle troponins. If they are positive, it may be reason able to go straight to repeat angiogram. I suspect the most likely cause of chest pain is atrial fib rillation. It is noted that he did respond to nitroglycerin. 2. Atrial fibrillation. He is on a low dose of carvedilol and 50 of long-acting metoprolol. I will give him 25 now. He is also on a diltiazem drip. Will follow. He is anticoagulated. He may be a candidate for cardioversion. 3. Diabetes. Will check a hemoglobin A1c. It sounds like his control has been improving. He is on a reasonable regimen. He just may need an insulin increase. 4. Coronary artery disease. He is on Plavix and a beta kasey. He is statin intolerant. 5. Disposition: Observation status. /[id number]/MODL
[2018-07-06] MEDS: CARVEDILOL 3.125 MG TAB PO SCH (17:49)
[2018-07-06] MEDS: ERGOCALCIFEROL 50,000 I.UNIT CAP PO SCH (17:50)
[2018-07-06] MEDS: FUROSEMIDE 20 MG TAB PO SCH (17:50)
--- NOTE | 2018-07-06 17:53 | PDCARPN ---
Cardiology Progress Note Chief Complaint: Chest pains and feeling acutely poor with dyspnea Assessment/Plan: Assessment: Patient is a 62 y/o male with history of CAD s/p multiple stents (LAD, LCX, and PDA) with further history of DM, HTN, HLP, MARTY, and atrial fibrillation (on Eliquis with [id number] score of 3) who initially presented to outpatient cardiology earlier today, after chest pains, dyspnea, and malaise were noted. Chest discomfort that was noted today was reportedly "different" that what he had experienced in the past, related to CAD and PCI need. This was the second episode of chest pain in less that one month. The first event led to the patient going to [facility] and having an acute work up. Per report, no gross pathology was noted - no cardiac enzyme elevation or dynamic ECG changes were noted. Echocardiography was performed on 07-02-18 with similar LVEF as that which was noted in the past (45%). No valve pathology was noted. Stress testing was to have been scheduled, but to date, this testing has not been performed. The last angiogram was in May [address] Arthur Massey at which time two stents were placed to the PDA. At present, the patient was resting comfortably. No active chest pains or pressure were noted. No PND or orthopnea. No fevers or chills. The first troponin was within normal limits, and the ECG with atrial fibrillation, old anterior myocardial infarction, and PVC. No ST/T wave changes were noted. Plan: (1) Cycle troponins for the next six hours with ECG (2) Would have the patient NPO after midnight - the CV risk for this patient is extremely elevated, and performance of stress testing in high risk patient is of little clinic relevance. - cardiology with recommendations for patient to have angiography given past history and symptoms noted (3) Would maintain therapy on ASA and Plavix for history of CAD with PCI (4) Eliquis should be held at present for likely angiography tomorrow (5) Metoprolol and lisinopril should continue for HTN management in this DM male with HTN and CAD with stents (6) Aggressive DM management should continue Subjective: Patient was not appreciating any chest pains while being evaluated today Objective: Vital Signs (8 Hrs) Temp Pulse Resp BP Pulse Ox 07/06/18 15:45 36.0 C 72 20 128/80 H 93 07/06/18 15:22 36.9 C 75 18 100/67 95 Intake/Output (24 Hrs) 07/05/18 07/06/18 07/07/18 05:59 05:59 05:59 Other: Weight 127.8 kg Result Diagrams: 07/06/18 13:30 07/06/18 13:30 EKG: atrial fibrillation with controlled ventricular response, and old anterior IA, and no dynamic ST/T wave changes Telemetry: atrial fibrillation Echocardiogram: Outpatient echo from 07-02-18 with mild reduction in LVEF noted (46%) and no valve pathology - Physical Exam Constitutional: WDWN, no apparent distress, obese Eyes: PERRL, EOMI Ears, Nose, Mouth, Throat: moist mucous membranes Cardiovascular: irregularly irregular, pulses symmetric bilat, No systolic murmur, No jugular vein distention Peripheral Pulses: 2+: dorsalis-pedis (R), dorsalis-pedis (L) Respiratory: clear to auscultate bilat, No reduced air movement Gastrointestinal: normoactive bowel sounds Skin: no edema, rash (with scattered skin lesions) Musculoskeletal: no muscular tenderness Neurologic: AAOx3, CN II-XII grossly intact Psychiatric: cooperative, interactive, following commands ICD10 Worksheet Patient Problems: Problems Problem Status Onset Atrial fibrillation Acute Chest pain Acute History of coronary artery disease Acute
[2018-07-06] MEDS: INSULIN LISPRO 100 UNIT/ML SC SCH (18:55)
[2018-07-06] MEDS ORDERED: APIXABAN 5 MG TAB PO SCH (21:00)
[2018-07-06] MEDS: INSULIN GLARGINE 100 UNITS/ML UNIT SC SCH (23:24)
[2018-07-06] MEDS: traMADol 50 MG TAB PO SCH (23:37)
[2018-07-07] MEDS: CARVEDILOL 3.125 MG TAB PO SCH ×2 (08:52→17:46)
[2018-07-07] MEDS: traMADol 50 MG TAB PO SCH ×2 (08:53→20:57)
[2018-07-07] MEDS: METOPROLOL SUCCINATE XR 50 MG TAB PO SCH (09:44)
[2018-07-07] MEDS: CLOPIDOGREL BISULFATE 75 MG TAB PO SCH (09:44)
[2018-07-07] MEDS: POTASSIUM CL 20 MEQ TAB PO SCH (09:44)
[2018-07-07] MEDS: LISINOPRIL 10 MG TAB PO SCH (09:45)
[2018-07-07] MEDS: INSULIN LISPRO 100 UNIT/ML SC SCH ×3 (09:46→17:47)
[2018-07-07] MEDS ORDERED: TEMAZEPAM 15 MG CAP PO PRN (10:06)
[2018-07-07] MEDS: FUROSEMIDE 20 MG TAB PO SCH ×2 (10:11→15:19)
--- NOTE | 2018-07-07 10:16 | PDCARPN ---
Cardiology Progress Note Assessment/Plan: Assessment: 1. CAD sp LAD and RCA stents 2. Ischemic cardiomyopathy 3. Atrial fibrillation 4. DM 5. Obesity Plan: 1. Reviewed his cath films from 05/2017. He had LAD, LCX and ramus disease at that time that may have progressed. sp RCA stent in 2018. Recurrent CP without troponin elevation. May be related to AF with RVR as well. Reviewed films with Dr. Dunaway who also met with patient. Plan coronary angiogram tomorrow AM. d.w. patient and . Depending on coronary anatomy, may need PCI vs CABG 2. AF with RVR likely contributing to Sx. I have reviewed Apple watch tracings that showed AF yesterday, telemetry yesterday with AFIB as well. Resume Eliquis post cath. 3. DM 07/07/18 10:13 Subjective: Chest pain yesterday with lightheadedness. Feels well now Reviewed/Discussed With: family, multidisciplinary team Time Spent with Patient: greater than 35 minutes Time Spent with Patient: Greater than 35 minutes spent on this patients care, greater than 50% of time spent counseling, educating, and coordinating care regarding the above mentioned plan. Objective: Vital Signs (8 Hrs) Temp Pulse Resp BP Pulse Ox 07/07/18 09:45 138/92 H 07/07/18 09:44 71 138/92 H 07/07/18 08:00 36.6 C 72 16 129/67 H 98 07/07/18 04:00 36.5 C 70 20 117/69 97 Intake/Output (24 Hrs) 07/05/18 07/06/18 07/07/18 11:59 11:59 11:59 Intake Total 500 Balance 500 Intake: Oral (ml) 500 Other: Weight 127.8 kg Intake Quantity Yes Sufficient Number of Voids Toilet 1 Result Diagrams: 07/06/18 13:30 07/06/18 13:30 Cardiac Labs: Cardiac Lab Results (72 Hrs) 07/06/18 19:41 Troponin I < 0.012 Telemetry: NSR - Physical Exam Eyes: PERRL, EOMI Ears, Nose, Mouth, Throat: moist mucous membranes Cardiovascular: regular rate and rhythm, no murmurs Gastrointestinal: normoactive bowel sounds, no tenderness ICD10 Worksheet Patient Problems: Problems Problem Status Onset Chest pain Acute History of coronary artery disease Acute Atrial fibrillation Acute
--- NOTE | 2018-07-07 15:16 | ASMTCMCOM ---
CM Note CM Note Notes: 07/07/2018 Case Management Note Pt admitted for chest pain and afib. Cath planned for tomorrow. There are no therapy evals ordered today. Social: pt is and employed. Independent in ADL's prior to admission. Case Management d/c poc: to be determined. Case Management to follow. Date Signed: 07/07/2018 03:16 PM Electronically Signed By:Josephine Tucker RN
--- NOTE | 2018-07-07 15:19 | HOSPPROG ---
Hospitalist Progress Note Assessment/Plan: 62 yo M with PMH of CAD, DM, a fib presenting with chest pain and a fib w/rvr # chest pain: high risk patient, trops negative and ecg non diagnostic but concern reamins high, plan for cath in am # a fib w/rvr: initially requiring dilt gtt and now off, resumed on home meds of coreg, metoprolol and apixaban, rate currently well controlled # DM2: glucose well controlled here, continue home regimen of glargine and lispro with a1c pending # cad: continue asa/plavix, cath in am # HTN: continue home meds of coreg, metoprolol, lasix and lisinopril, bp has been on the low end, will cotnineu to monitor # IP status Pateint new to my care. Old records reviewed and summarized as above. Care plan reviewed with cardiology Subjective: no significant overnight evetns, notes that a medication he took today left him feeling wiped out Objective: Vital Signs Temp Pulse Resp BP Pulse Ox 36.6 C 74 14 112/55 L 91 L 07/07/18 12:00 07/07/18 12:00 07/07/18 12:00 07/07/18 12:00 07/07/18 12:00 07/06/18 07/07/18 07/08/18 05:59 05:59 05:59 Intake Total 500 Balance 500 awake alert anicteric op clear rrr no mrg cta b soft nt nd no cce warm dry well perfused oriented ICD10 Worksheet Patient Problems: Problems Problem Status Onset Chest pain Acute History of coronary artery disease Acute Atrial fibrillation Acute
[2018-07-07] MEDS: INSULIN GLARGINE 100 UNITS/ML UNIT SC SCH (19:57)
[2018-07-08 04:18] LABS: PLATELET COUNT 165 10^3/uL (150-400)
[2018-07-08 04:37] LABS: INR 1.11 (0.83-1.16); PROTIME(PATIENT) 13.9 SEC (12.0-15.0)
[2018-07-08] MEDS: CLOPIDOGREL BISULFATE 75 MG TAB PO SCH (08:28)
[2018-07-08] MEDS: CARVEDILOL 3.125 MG TAB PO SCH ×2 (08:28→17:48)
[2018-07-08] MEDS: LISINOPRIL 10 MG TAB PO SCH (08:29)
[2018-07-08] MEDS: METOPROLOL SUCCINATE XR 50 MG TAB PO SCH (08:29)
[2018-07-08] MEDS: INSULIN LISPRO 100 UNIT/ML SC SCH ×3 (09:00→16:54)
[2018-07-08] MEDS: POTASSIUM CL 20 MEQ TAB PO SCH ×2 (09:00→16:49)
[2018-07-08] MEDS: FUROSEMIDE 20 MG TAB PO SCH ×2 (09:00→16:49)
[2018-07-08] MEDS: traMADol 50 MG TAB PO SCH ×2 (09:02→22:01)
[2018-07-08] MEDS ORDERED: LIDOCAINE 1% 300 MG/30 ML SDV ONE (11:22)
[2018-07-08] MEDS ORDERED: fentaNYL 100 MCG/2 ML INJ ONE ×2 (11:22→12:31)
[2018-07-08] MEDS ORDERED: MIDAZOLAM 2 MG/2 ML VIAL ONE ×2 (11:22→11:23)
[2018-07-08] MEDS ORDERED: IOPAMIDOL (ISOVUE-370) 150 ML BTL IV ONE (11:23)
--- NOTE | 2018-07-08 11:56 | PDPROPOC ---
Sedation Plan of Care Sedation Plan of Care: vital signs stable, mental status noted, patient educated of risks, benefits, alternatives, patient can tolerate sedation ASA Classification: ASA 3 Planned drugs: fentanyl, midazolam Mallampati Score: Class 3 Mallampati Reference Image: Patient passed 3-3-2 rule?: No
[2018-07-08] MEDS ORDERED: ATROPINE SULFATE 1 MG/10 ML SYR IVP PRN (12:22)
[2018-07-08] MEDS ORDERED: OXYCODONE/APAP 5/325 TAB PO PRN (12:22)
[2018-07-08] MEDS ORDERED: HYDROCODONE/APAP 5/325 TAB PO PRN (12:22)
--- NOTE | 2018-07-08 14:06 | CPIP ---
[f rep st] INVASIVE CARDIAC PROCEDURE DATE OF PROCEDURE: 07/08/2018 PROCEDURE PERFORMED: 1. Selective coronary angiography. 2. Left heart catheterization. 3. Left ventriculogram. 4. Manual hold arteriotomy repair. COMPLICATIONS: None. INDICATIONS/APPROPRIATE USE CRITERIA: The patient presented to the hospital with paroxysmal atrial f ibrillation with rapid ventricular response resulting in angina pectoris. The patient's atrial fibri llation spontaneously converted. However, the patient did have EKG changes that were concerning for possible myocardial ischemia and clearly his symptoms were noted to be consistent with angina. Revie w of his past and most recent percutaneous intervention revealed that 3 stents were placed in a criti akanksha stenosis of the PDA by my partner, Dr. Jesús Massey, and concern is that there may have been p rogression of disease given his clinical symptoms with a relatively low heart rate in the 110 to 115 range. The indications/appropriate use criteria would be angina pectoris with paroxysmal atrial fibr illation with CCS class 4 angina at rest and nonspecific ST-segment depression in V4, V5 and V6 durin g the tachycardia. PROCEDURE IN DETAIL: After informed consent was obtained, n.p.o. status was confirmed, the region of the right groin was cleaned, prepped, and draped in sterile fashion. Approximately 10 cc of 1% lido vito was utilized for local anesthesia. A 6-Arabic sheath was placed in the right common femoral ar renay with single anterior puncture of the vessel. The patient then underwent the previously mentione d diagnostic procedures with use of JL4 and R4 curved coronary catheters, as well as a 6-Arabic pigta il catheter. Standard wire exchange technique was utilized for all catheter exchanges. The left main coronary lumen is approximately 8 mm in size. The vessel is relatively long and divide s into 4 vessels. One is the circ proper approximately 2.5 Mm in size proximally with an 80% stenosi s just prior to an old stent. The circumflex gives rise to a 2 mm obtuse marginal branch, which is c ompromised by the 80% lesion in the proximal circumflex. A 2nd vessel is a high obtuse marginal and appears to be relatively free of flow-limiting disease although tortuosity in the proximal segment of that vessel with a full 270-degree turn makes it difficult to rule out flow-limiting obstruction of this important blood vessel that runs to the obtuse margin of the heart. There is a high diagonal ve ssel, which runs in a ramus distribution, which appears to have an 80% ostial stenosis near its takeo ff from the confluence of the distal left main. The proximal LAD is a 3 mm vessel with evidence of s tenosis, which is at least 40% to 50% prior to a previously stented segment. The stented segment benigno ears to be widely patent. However, distal to the stent, there is evidence of a hazy obstruction in t he LAD consistent with underlying atherosclerosis if not calcification and the stenosis is estimated visually to be approximately 80%. The LAD thereafter is a small vessel approximately 2 mm in size, b ut does have CHERYL-3 flow to the distal vessel. The patient underwent left heart catheterization demonstrating elevated left ventricular end-diastoli c pressure measured at 16 mmHg. The patient underwent left ventriculogram in the SANTOS projection, dem onstrating preserved left ventricular systolic function. Ejection fraction is 65%. No resting segme ntal wall motion abnormalities identified. There is no significant mitral regurgitation. There is n o evidence of a gradient upon pullback across the aortic valve indicating no catheter based evidence of aortic stenosis. The visualized portion of the thoracic aorta appears to be generous in size with a tubular dilation of the vessel. A nighat aneurysm or dissection is not identified. The right tommy nary artery is dominant and gives rise to a posterior descending, which reveals 3 overlapping stents in the proximal to mid PDA. These are known from reports to be 3 overlapping 225 synergy drug-elutin g stents. There are 2 posterolateral ventricular branches which appear to be diffusely diseased, but likely not good targets for a bypass. FINAL IMPRESSION: Normal left ventricular chamber size with relatively well-preserved left ventricul ar systolic function. Ejection fraction is 50%. No significant mitral regurgitation is noted. The proximal portion of the thoracic aorta is generous in size and should be evaluated with CT angiograph y to rule out an aneurysm given that surgery is now planned for this patient. The patient has severe [place] vessel coronary disease with flow-limiting obstruction of a principal diagonal vessel which r uns in a ramus distribution, critical obstruction of the LAD as noted in the body of this report ed g with critical proximal obstruction of the left circumflex proper. I believe the high obtuse margin al vessel to be free of flow-limiting disease as well as the right coronary, although certainly a freddie geon could not be blamed for grafting those vessels given the diffuse nature of the patient's diabeti c vessels elsewhere. The patient should have a CT angiogram of the thoracic aorta with 3-dimensional reconstruction to rule out an aneurysm, which will be planned for today. The patient will also requ edmund an echocardiogram to rule out valvular heart disease as a cause for the patient's known atrial fi brillation. Ultimately, our recommendation in this diabetic patient, which has been Dr. Massey's opinion in the past, would be to proceed with open heart surgery with a ARAUJO to the LAD and a conduit to the princi pal diagonal and circumflex obtuse marginal posteriorly with the surgeon's decision about bypassing t he right and the high obtuse marginal vessel. 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 I have discussed the findings with the patient as well as with Dr. Pierce, who plans to see the patient in co nsultation in the morning for potential bypass surgery and Hawthorne maze procedure. The 2 remaining issue s are the absolute size and confirmation of the proximal portion of the thoracic aorta, as well as to determine if the patient has serious or significant valvular heart disease at the present time. Copy requested to: Primary Care Physician /[id number]/MARIL
--- NOTE | 2018-07-08 15:18 | HOSPPROG ---
Hospitalist Progress Note Assessment/Plan: 62 yo M with PMH of CAD, DM, a fib presenting with chest pain and a fib w/rvr # chest pain: s/p cath and presumably due to severe multivessel cad as next # CAD: with severe multivessel disease, discussed with Dr. Dunaway and recommendation is for CABG and CT surgery consultation pending # a fib w/rvr: initially requiring dilt gtt and now off, resumed on home meds of coreg, metoprolol and apixaban, patient would be candidate for Hawthorne maze procedure which could be completed at same time as CABG # DM2: glucose well controlled here, continue home regimen of glargine and lispro with a1c pending # cad: continue asa/plavix, cath in am # HTN: continue home meds of coreg, metoprolol, lasix and lisinopril, bp has been on the low end, will continue to monitor # IP status Care plan reviewed with cardiology Subjective: no significant overnight events, patient post cath and a bit somnolent Objective: Vital Signs Temp Pulse Resp BP Pulse Ox 36.6 C 59 L 19 133/69 H 97 07/08/18 14:06 07/08/18 14:06 07/08/18 14:06 07/08/18 14:06 07/08/18 14:06 Laboratory Results 07/08/18 03:35 07/08/18 03:35 07/07/18 07/08/18 07/09/18 05:59 05:59 05:59 Intake Total 500 1740 300 Output Total 1800 0 Balance 500 -60 300 PT 13.9 SEC (12.0-15.0) 07/08/18 03:35 INR 1.11 (0.83-1.16) 07/08/18 03:35 awake alert anicteric op clear rrr no mrg cta b soft nt nd no cce warm dry well perfused oriented - Time Spent With Patient Time Spent with Patient: greater than 35 minutes Time Spent with Patient: Greater than 35 minutes spent on this patients care, greater than 50% of time spent counseling, educating, and coordinating care regarding the above mentioned plan. ICD10 Worksheet Patient Problems: Problems Problem Status Onset Atrial fibrillation Acute Chest pain Acute History of coronary artery disease Acute
--- NOTE | 2018-07-08 18:59 | PDMN ---
Medical Necessity Medical necessity: [facility] [place] M40 angina- 62Yo M with PMHx CAD, DM, afib, presents with CP , afib with rvr. pt had cardiac cath showing severe mutivessel disease CABG rec. status changed to INPT 07/08 for ongoing med nec. further monitoring, eval and tx needed- prob CABG cardiology to discuss with pt.
[2018-07-08] MEDS: INSULIN GLARGINE 100 UNITS/ML UNIT SC SCH (20:03)
[2018-07-08] MEDS ORDERED: IOPAMIDOL (ISOVUE 370) 100 ML BTL IV ONE (20:50)
--- NOTE | 2018-07-09 08:50 | PDCARPN ---
Cardiology Progress Note Chief Complaint: CP Assessment/Plan: Assessment: CP CAD- 3 vessel AF Plan: 07/09/18 08:[address] surgery evaluation Patient deciding about [place] vs here for surgery (social reasons) I have explained to patient the risks of leaving without surgery BP/HR stable Plan per CTS/patient Subjective: stable Reviewed/Discussed With: multidisciplinary team Time Spent with Patient: greater than 25 minutes Time Spent with Patient: Greater than 25 minutes spent on this patients care, greater than 50% of time spent counseling, educating, and coordinating care regarding the above mentioned plan. Objective: Vital Signs (8 Hrs) Temp Pulse Resp BP Pulse Ox 07/09/18 07:33 36.5 C 70 13 106/64 96 07/09/18 04:00 36.6 C 64 16 127/78 H 92 Intake/Output (24 Hrs) 07/08/18 07/09/18 07/10/18 05:59 05:59 05:59 Intake Total 275 Output Total 1575 Balance -1300 Intake: Oral (ml) 275 Output: Urine (ml) 1575 Urinal 1575 Result Diagrams: 07/08/18 03:35 07/08/18 03:35 - Physical Exam Constitutional: healthy appearing Eyes: PERRL Ears, Nose, Mouth, Throat: moist mucous membranes Cardiovascular: regular rate and rhythm Peripheral Pulses: 1+: femoral (R), femoral (L) Respiratory: clear to auscultate bilat Gastrointestinal: normoactive bowel sounds Genitourinary: no suprapubic tenderness Skin: no rashes Musculoskeletal: no muscular tenderness Neurologic: AAOx3 Psychiatric: cooperative ICD10 Worksheet Patient Problems: Problems Problem Status Onset Atrial fibrillation Acute Chest pain Acute History of coronary artery disease Acute
[2018-07-09] MEDS: CLOPIDOGREL BISULFATE 75 MG TAB PO SCH (09:17)
[2018-07-09] MEDS: traMADol 50 MG TAB PO SCH ×2 (09:17→20:57)
[2018-07-09] MEDS: FUROSEMIDE 20 MG TAB PO SCH ×2 (09:17→14:33)
[2018-07-09] MEDS: POTASSIUM CL 20 MEQ TAB PO SCH (09:17)
[2018-07-09] MEDS: METOPROLOL SUCCINATE XR 50 MG TAB PO SCH (09:18)
[2018-07-09] MEDS: CARVEDILOL 3.125 MG TAB PO SCH (09:18)
[2018-07-09] MEDS: LISINOPRIL 10 MG TAB PO SCH (09:18)
[2018-07-09] MEDS: INSULIN LISPRO 100 UNIT/ML SC SCH ×3 (09:19→17:12)
[2018-07-09] MEDS: ERGOCALCIFEROL 50,000 I.UNIT CAP PO SCH (14:33)
--- NOTE | 2018-07-09 15:03 | HOSPPROG ---
Hospitalist Progress Note Assessment/Plan: 62 yo M with PMH of CAD, DM, a fib presenting with chest pain and a fib w/rvr found to have severe multi-vessel CAD, CABG recommended. # CAD: severe multivessel disease, recommendation is for CABG. Pt now agreeable to proceeding. -CT surgery planning for CABG mon morning # a fib w/rvr: off dilt gtt -cont coreg, metoprolol for rate control -eliquis held since 07/06 pending surgery, chads-vasc 3, defer bridging -patient would be candidate for Hawthorne maze procedure which could be completed at same time as CABG # DM2: a1c 8.5. BG's well controlled, but pt refusing lantus and using only lispro. Discussed with pt goal is 50% basal / 50% bolus insulin -cont lantus, decrease to 10 u HS -SSI lispro # cad: continue asa/plavix, BB, intolerance to statin -check lipid status in am # HTN: continue home meds of coreg, metoprolol, lasix and lisinopril, bp has been on the low end, will continue to monitor # IP status Care plan reviewed with cardiology and CV surgery team Subjective: Pt feels well. No CP or SOB. He is worried to take lantus with bg' s 100's, but is taking scheduled lispro, 38 u a day. Tolerating diet. Objective: Vital Signs Temp Pulse Resp BP Pulse Ox 36.7 C 75 14 111/66 91 L 07/09/18 11:22 07/09/18 11:22 07/09/18 11:22 07/09/18 11:22 07/09/18 11:22 07/08/18 07/09/18 07/10/18 05:59 05:59 05:59 Intake Total 275 Output Total 1575 Balance -1300 PT 13.9 SEC (12.0-15.0) 07/08/18 03:35 INR 1.11 (0.83-1.16) 07/08/18 03:35 - Physical Exam Constitutional: no apparent distress Eyes: PERRL Ears, Nose, Mouth, Throat: moist mucous membranes Cardiovascular: regular rate and rhythym Respiratory: no respiratory distress, clear to auscultation Gastrointestinal: normoactive bowel sounds, soft, non-tender abdomen Skin: warm Musculoskeletal: full muscle strength Neurologic: AAOx3 Psychiatric: interacting appropriately ICD10 Worksheet Patient Problems: Problems Problem Status Onset Atrial fibrillation Acute Chest pain Acute History of coronary artery disease Acute
--- NOTE | 2018-07-09 15:14 | GCON ---
[f rep st] CONSULTATION DATE OF CONSULTATION: 07/09/2018 REFERRING PHYSICIAN: Dr. Dunaway The patient seen at the request of Dr. Dunaway with the patient's permission. IMPRESSION: 1. Unstable angina pectoris with severe diffuse 3-vessel disease. 2. Paroxysmal atrial fibrillation/early persistent. 3. Obesity. 4. Diabetes mellitus. RECOMMENDATIONS: This gentleman should undergo coronary artery revascularization with arterial condu its where able. We will utilize 2 mammaries and 1 left radial. We will also perform Hawthorne Maze IV by atrial procedure with testing. Risks and complications were reviewed at length with the patient. CHIEF COMPLAINT: Chest pain and shortness of breath. HISTORY OF CHIEF COMPLAINT: This patient has had prior stenting. He has had progressive dyspnea on exertion and presented with chest pressure, rather severe. Underwent diagnostic left heart catheteri zation and was found to have severe 3-vessel disease not amenable to stenting. REVIEW OF SYSTEMS: Negative except for chief complaint. MEDICAL HISTORY: Positive for atrial fibrillation, diabetes, hypertension, COPD, obesity, and a prev ious coronary artery stenting. MEDICATIONS: Apixaban, carvedilol, clopidogrel, ergocalciferol, Lasix, Lantus, lispro sliding scale, metoprolol, nitroglycerin, potassium, and tramadol. SOCIALLY: No smoking. No drinking. 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 FAMILY HISTORY: Strong for coronary disease early on both sides of the family. PHYSICAL EXAMINATION: GENERAL APPEARANCE: An obese middle-aged gentleman lying supine in no apparen t distress. VITAL SIGNS: Blood pressure is 119/75, pulse 76, respirations 16 and nonlabored. HEENT : Normocephalic. PERRLA. EOMI. NECK: Without bruit, adenopathy or thyromegaly. HEART: Rates re gular without murmur. CHEST: Lungs are clear. ABDOMEN: Soft, nontender. Bowel sounds are active. Please see cath report for details. /[id number]/MODL
[2018-07-09] MEDS ORDERED: D50W 25 GM/50 ML SYR IVP PRN (15:20)
[2018-07-09] MEDS ORDERED: INSULIN GLARGINE 100 UNITS/ML UNIT SC SCH (15:21)
--- NOTE | 2018-07-09 16:12 | ECHO ---
[email or web address] [address] [address] Main: [phone] Echocardiography Examination Transthoracic Name: DAMARIS ANAYA MR#: [id number] Study Date: 07/09/2018 Study Time: 02:41 PM Date of : 1955 Age: 62 year(s) Height: 190.5 cm (75 in.) Weight: 127.46 kg (281 lb.) BSA: 2.54 m2 Gender: Male Examination: Limited Echo Contrast: Image Quality: Fair Rhythm: Normal sinus rhythm Heart Rate: 83 bpm BP: 111 mmHg/60 mmHg Indication: Pre Op CABG Procedure Staff Referring Physician: Real Property Appraiser: Mason Benton RDCS Reading Physician: Vaughn Fitzgerald MD Requesting Provider: Ordering Physician: Hugh Dunaway MD Indication: Pre Op CABG Measurements Chambers AV/MV Label Value Normal Value Label Value Normal Value LVEF visual 33 % AR Vena contracta 0.3 cm LVOT PGmax 2 mmHg MV PGmax 5 mmHg LVOT Vmax 0.74 m/s (0.7m/s - 1.1m/s) MV PGmean 1 mmHg Additional Vessels MV VTI 32 cm Label Value Normal Value AoAsc 3.5 cm AoRoot, MM 3.7 cm (2.2cm - 3.7cm) Conclusions Left Ventricle: CONCLUSIONS:1)Technically limited echo secondary to body habitus.2)Probably moderate LV dysfunction with an estimated LVEF 33% and anterior-septal hypokinesis.3)Trileaflet aortic valve with aortic sclerosis without . Not great views but probably mild-moderate AI noted.4)Trivial to mild MR without MV prolapse.5)No TR noted.note: consider intraoperative TRISH to better assess AI but doubt more than mild to moderate in severity. Findings Patient: DAMARIS ANAYA Study Date: 07/09/2018 Page 1 of 2 02:41 PM Left Ventricle: This is a limited echo to evaluate the valve prior to CABG.. CONCLUSIONS: 1)Technically limited echo secondary to body habitus. 2)Probably moderate LV dysfunction with an estimated LVEF 33% and anterior-septal hypokinesis. 3)Trileaflet aortic valve with aortic sclerosis without . Not great views but probably mild-moderate AI noted. 4)Trivial to mild MR without MV prolapse. 5)No TR noted. note: consider intraoperative TRISH to better assess AI but doubt more than mild to moderate in severity. Mitral Valve: Trivial to mild mitral regurgitation. No mitral valve stenosis. There is mild mitral calcification. Aortic Valve: Mild to moderate aortic regurgitation is present. There is no aortic stenosis. Aortic leaflets exhibit mild calcification. The aortic valve is trileaflet. Tricuspid Valve: Tricuspid valve leaflets are normal in appearance and function. No significant tricuspid regurgitation. Pulmonic Valve: Pulmonic leaflets are normal in appearance and function. No pulmonic valve regurgitation is evident. Aorta: The aortic root size in M-mode measures 3.7 cm. The ascending aorta measures 3.5 cm. Aorta Measurements AoRoot, MM is 3.7 cm. Exam Details Procedure Ordered: Limited Echo Procedure Status: Routine study Image Quality: Fair Facility Location: Cardiac Echo 1 (No Signature Object) Patient: DAMARIS ANAYA Study Date: 07/09/2018 Page 2 of 2 02:41 PM [id number]
--- NOTE | 2018-07-10 07:19 | PDCARPN ---
Cardiology Progress Note Chief Complaint: CP/SOB Assessment/Plan: Assessment: CP CAD- 3 vessel AF Plan: 07/09/18 08:[address] surgery evaluation Patient deciding about [place] vs here for surgery (social reasons) I have explained to patient the risks of leaving without surgery BP/HR stable Plan per CTS/patient 07/10/18 07:18 patient agreeable to surgery here continue current tx plan for surgery on 07/11 Subjective: stable Reviewed/Discussed With: multidisciplinary team Time Spent with Patient: greater than 25 minutes Time Spent with Patient: Greater than 25 minutes spent on this patients care, greater than 50% of time spent counseling, educating, and coordinating care regarding the above mentioned plan. Objective: Vital Signs (8 Hrs) Temp Pulse Resp BP Pulse Ox 07/10/18 04:00 36.3 C 67 16 101/65 98 07/09/18 23:43 36.3 C 68 16 124/58 H 93 Intake/Output (24 Hrs) 07/09/18 07/10/18 07/11/18 05:59 05:59 05:59 Intake Total 275 800 Output Total 1575 625 Balance -1300 175 Intake: Oral (ml) 275 800 Output: Urine (ml) 1575 625 Urinal 1575 625 Result Diagrams: 07/08/18 03:35 07/08/18 03:35 - Physical Exam Constitutional: no apparent distress Eyes: PERRL Ears, Nose, Mouth, Throat: moist mucous membranes Cardiovascular: no murmurs, irregularly irregular Peripheral Pulses: 1+: femoral (R), femoral (L) Respiratory: clear to auscultate bilat Gastrointestinal: normoactive bowel sounds Genitourinary: no suprapubic tenderness Skin: no rashes Musculoskeletal: no muscular tenderness Neurologic: AAOx3 Psychiatric: cooperative ICD10 Worksheet Patient Problems: Problems Problem Status Onset Atrial fibrillation Acute Chest pain Acute History of coronary artery disease Acute
[2018-07-10] MEDS: traMADol 50 MG TAB PO SCH ×2 (08:42→20:57)
[2018-07-10] MEDS: LISINOPRIL 10 MG TAB PO SCH (08:42)
[2018-07-10] MEDS: FUROSEMIDE 20 MG TAB PO SCH ×2 (08:42→15:48)
[2018-07-10] MEDS: METOPROLOL SUCCINATE XR 50 MG TAB PO SCH (08:43)
[2018-07-10] MEDS: POTASSIUM CL 20 MEQ TAB PO SCH (08:43)
[2018-07-10] MEDS: INSULIN LISPRO 100 UNIT/ML SC SCH ×3 (08:43→18:21)
--- NOTE | 2018-07-10 09:24 | ASMTCMCOM ---
CM Note CM Note Notes: Pt is scheduled for CABG Tuesday 07/11. CM to follow. Discharge needs TBD at this point. Plan: TBD Date Signed: 07/10/2018 09:23 AM Electronically Signed By:CHRIS Aaron
--- NOTE | 2018-07-10 18:44 | HOSPPROG ---
Hospitalist Progress Note Assessment/Plan: DIAGNOSES: * Unstable angina pectoralis * Diffuse 3 vessel coronary artery disease * Chronic atrial fibrillation rate controlled * Diabetes mellitus * Hypercholesterolemia LDL 115 - previous intolerance to statins * Obesity * Chronic obstructive sleep apnea -this will need long-term attention * Hypertension PLANS: * Current schedule is for coronary bypass surgery and Maze procedure 2 days from now * Continue utility locator * Continue current medications, will review cholesterol issues and management with Cardiology * Encourage ambulation here in the hospital * Continue current management of diabetes continue follow sugars closely here Seen by me today on hospitalist rounds as well as multidisciplinary rounds Answered many questions for the patient family at the bedside today SUBJECTIVE: No anginal symptoms today Not short of breath No palpitations OBJECTIVE Vitals reviewed: 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, 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: AFib rate 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11 (0.83-1.16) 07/08/18 03:35 - Time Spent With Patient Time Spent with Patient: greater than 35 minutes Time Spent with Patient: Greater than 35 minutes spent on this patients care, greater than 50% of time spent counseling, educating, and coordinating care regarding the above mentioned plan. ICD10 Worksheet Patient Problems: Problems Problem Status Onset Atrial fibrillation Acute Chest pain Acute History of coronary artery disease Acute
[2018-07-10] MEDS ORDERED: CHLORHEXIDINE GLUC HIBICLENS 118 ML BTL TP SCH (21:00)
[2018-07-11] MEDS ORDERED: CALCIUM CHLORIDE 1 GM/10 ML INJ ONE ×3 (06:24→06:26)
[2018-07-11] MEDS ORDERED: PROTAMINE SULFATE 50 MG/5 ML VIAL IVP ONE (06:24)
[2018-07-11] MEDS ORDERED: MILRINONE/DEXTROSE/100 ML BAG IV ONE (06:24)
[2018-07-11] MEDS ORDERED: AMINOCAPROIC ACID 5 GM/20 ML VIAL ONE ×2 (06:24→06:26)
[2018-07-11] MEDS ORDERED: NITROGLYCERIN/D5W 50 MG/250 ML BOTTLE IV ONE (06:25)
[2018-07-11] MEDS ORDERED: HEPARIN 10,000 UNIT/10 ML MDV (1,000 UNIT/ML) ONE ×2 (06:25→06:27)
[2018-07-11] MEDS ORDERED: DOPamine/DEXTROSE 400 MG/250 ML BAG IV ONE (06:25)
[2018-07-11] MEDS ORDERED: ADENOSINE 6 MG/2 ML VIAL ONE (06:25)
[2018-07-11] MEDS ORDERED: ceFAZolin 1 GM VIAL ONE (06:25)
[2018-07-11] MEDS ORDERED: NA BICARBONATE 50 MEQ/50 ML VIAL ONE (06:25)
[2018-07-11] MEDS ORDERED: niCARdipine/NACL/200 ML BAG IV ONE (06:25)
[2018-07-11] MEDS ORDERED: AMIODARONE HCL 150 MG/3 ML VIAL ONE ×2 (06:25→06:27)
[2018-07-11] MEDS ORDERED: ALBUMIN 5% 250 ML BOTTLE IV ONE ×3 (06:26→14:21)
[2018-07-11] MEDS ORDERED: SODIUM BICARBONATE 50 MEQ/50 ML SYR ONE ×3 (06:26→19:41)
[2018-07-11] MEDS ORDERED: MAGNESIUM SULFATE 1 GM/2 ML VIAL ONE (06:27)
[2018-07-11] MEDS ORDERED: methylPREDNISolone SOD SUCC 1 GM/8 ML VIAL ONE (06:27)
[2018-07-11] MEDS ORDERED: CITRATE DEXTROSE SOLN 500 ML BAG ONE (06:27)
[2018-07-11] MEDS ORDERED: LIDOCAINE 2% 100 MG/5 ML SYR ONE (06:27)
[2018-07-11] MEDS ORDERED: LR 1,000 ML IV ONE (06:31)
[2018-07-11] MEDS ORDERED: MINERAL OIL 10 ML VIAL ONE ×2 (06:45→15:42)
[2018-07-11] MEDS ORDERED: VERAPAMIL 5 MG/2 ML VIAL ONE ×2 (06:45→07:28)
[2018-07-11] MEDS ORDERED: PAPAVERINE HCL 60 MG/2 ML SDV ONE ×2 (06:45→07:28)
--- NOTE | 2018-07-11 06:46 | PDHPUP ---
History & Physical Update H&P update statement: This history and physical update is based on an assessment of the patient which was completed after admission or registration (within 24 hours), but prior to the surgery/procedure. 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 Mr. Mendoza is right hand dominant. 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 Will be confirmed again intraop.)
[2018-07-11] MEDS: ceFAZolin 2 GM/DEXTROSE 100 ML IV ONE ×2 (06:55→11:00)
[2018-07-11] MEDS ORDERED: VERAPAMIL 5 MG, NITROGLYCERIN 2.5 MG, HEPARIN 500 UNIT, SODIUM BICARBONATE 0.2 MEQ in L... MISC ONE (07:00)
[2018-07-11] MEDS ORDERED: CITRATE DEXTROSE SOLN 500 ML BAG MISC ONE (07:00)
[2018-07-11] MEDS ORDERED: INSULIN REGULAR HUMAN 100 UNIT in NS 100 ML IV ONE (07:00)
[2018-07-11] MEDS ORDERED: PAPAVERINE HCL 60 MG in NS 100 ML IV ONE (07:00)
[2018-07-11] MEDS ORDERED: PHENYLEPHRINE HCL 50 MG in NS 250 ML IV ONE (07:00)
[2018-07-11] MEDS ORDERED: MUPIROCIN 2% 22 GM OINT NS ONE (07:00)
[2018-07-11] MEDS ORDERED: CARDIOPLEGIC SOLUTION 1,052.8 ML PF ONE (07:00)
[2018-07-11] MEDS ORDERED: MANNITOL 25% 12.5 GM/50 ML VIAL IVP ONE (07:00)
[2018-07-11] MEDS ORDERED: AMINOCAPROIC ACID 5 GM/20 ML VIAL IV ONE (07:00)
[2018-07-11] MEDS ORDERED: NOREPINEPHRINE BITARTRATE 16 MG in NS 250 ML IV ONE ×2 (07:00→15:15)
[2018-07-11] MEDS ORDERED: niCARdipine/NACL 200 ML IV ONE (07:00)
[2018-07-11] MEDS ORDERED: MIDAZOLAM 2 MG/2 ML VIAL IVP ONE (07:05)
--- NOTE | 2018-07-11 07:06 | PDANEPAE ---
ANE History of Present Illness cab,pryor/maze ANE Past Medical History - Cardiovascular History Hx Hypertension: Yes Hx Arrhythmias: Yes Hx Chest Pain: Yes Hx Coronary Artery / Peripheral Vascular Disease: Yes Hx CHF / Valvular Disease: Yes Hx Palpitations: No - Pulmonary History Hx COPD: No Hx Asthma/Reactive Airway Disease: No Hx Recent Upper Respiratory Infection: No Hx Oxygen in Use at Home: No Hx Sleep Apnea: Yes Sleep Apnea Screening Result - Last Documented: Positive - Neurologic History Hx Cerebrovascular Accident: No Hx Seizures: No Hx Dementia: No - Endocrine History Hx Diabetes: Yes Hypothyroid: No Hyperthyroid: No Obesity: moderate - Renal History Hx Renal Disorders: No - Liver History Hx Hepatic Disorders: No - Chronic Pain History Chronic Pain: Yes (arthritis) ANE Review of Systems Review of Systems: - Exercise capacity Exercise capacity: <4 METS ANE Patient History - Allergies Allergies/Adverse Reactions: Rouqwag-Xpy-Vsy Reductase Inhibitor Allergy (Verified 07/06/18 14:15) Memory Problems - Home Medications Home Medications: Lisinopril [Zestril 10 mg (*)] 10 mg PO DAILY 05/31/17 [Last Taken 07/06/18] traMADol [Ultram 50 mg (*)] 50 mg PO BID 05/31/17 [Last Taken 07/06/18] Apixaban [Eliquis] 5 mg PO BID 07/06/18 [Last Taken 07/06/18] Ergocalciferol [Vitamin D2 (*)] 50,000 unit PO MOFR 07/06/18 [Last Taken ] Insulin Glargine,Hum.rec.anlog [Basaglar Kwikpen U-100] 30 unit SQ HS 07/06/18 [ Last Taken 07/05/18] Insulin Lispro [Humalog] 12 unit SQ BID@07/06/18 [Last Taken 07/06/18] Insulin Lispro [Humalog] 14 unit SQ DAILY@12 07/06/18 [Last Taken 07/06/18] Metoprolol Succinate Xr [Toprol Xl 50 mg (*)] 50 mg PO DAILY 07/06/18 [Last Taken 07/06/18] Nitroglycerin [Nitrostat 0.4 mg (*)] 0.4 mg SL Q5M PRN 07/06/18 [Last Taken 3 TABS] Potassium Cl [Klor-Con 20 meq (*)] 20 meq PO DAILY 07/06/18 [Last Taken 07/06/18 ] - NPO status NPO Status: no food or drink >8 hours NPO Since - Liquids (Date): 07/10/18 NPO Since - Liquids (Time): 23:55 NPO Since - Solids (Date): 07/10/18 NPO Since - Solids (Time): 18:00 - Anes Hx Anes Hx: no prior problems - Smoking Hx Smoking Status: Never smoked ANE Labs/Vital Signs - Labs Result Diagrams: 07/08/18 03:35 07/08/18 03:35 - Vital Signs Blood Pressure: 109/78 Heart Rate: 97 Respiratory Rate: 18 O2 Sat (%): 98 Height: 190.5 cm Weight: 121.517 kg ANE Physical Exam - Airway Mallampati Score: Class 2 Mouth exam: normal dental/mouth exam - Pulmonary Pulmonary: no respiratory distress - Cardiovascular Cardiovascular: irregularly irregular - ASA Status ASA Status: III ANE Anesthesia Plan Anesthesia Plan: general endotracheal anesthesia Lines/Monitors: arterial line, central line, TRISH
[2018-07-11] MEDS ORDERED: MIDAZOLAM 2 MG/2 ML VIAL ONE ×2 (07:07)
[2018-07-11] MEDS ORDERED: fentaNYL 250 MCG/5 ML INJ ONE ×2 (07:07)
[2018-07-11] MEDS ORDERED: PROPOFOL 200 MG/20 ML VIAL ONE (07:08)
[2018-07-11] MEDS ORDERED: VANCOMYCIN HCL/NORMAL SALINE 250 ML IV ONE (07:30)
[2018-07-11] MEDS ORDERED: VANCOMYCIN 1.75 GM in D5W 500 ML IV ONE (07:30)
--- NOTE | 2018-07-11 07:54 | PDCARPN ---
Cardiology Progress Note Chief Complaint: CP Assessment/Plan: Assessment: CP CAD- 3 vessel AF Plan: 07/09/18 08:[address] surgery evaluation Patient deciding about [place] vs here for surgery (social reasons) I have explained to patient the risks of leaving without surgery BP/HR stable Plan per CTS/patient 07/10/18 07:18 patient agreeable to surgery here continue current tx plan for surgery on 07/1107/11/18 07:53 stable plan for CABG/Maze today NPO further recs per CTS will follow as needed Subjective: stable Reviewed/Discussed With: multidisciplinary team Time Spent with Patient: greater than 25 minutes Time Spent with Patient: Greater than 25 minutes spent on this patients care, greater than 50% of time spent counseling, educating, and coordinating care regarding the above mentioned plan. Objective: Vital Signs (8 Hrs) Temp Pulse Resp BP Pulse Ox 07/11/18 07:06 97 18 109/78 98 07/11/18 06:15 36.5 C 78 16 126/78 H 96 07/11/18 05:57 36.3 C 97 18 109/78 98 07/11/18 04:17 36.3 C 92 18 109/78 98 Intake/Output (24 Hrs) 07/10/18 07/11/18 07/12/18 05:59 05:59 05:59 Intake Total 800 536 Output Total 625 600 Balance 175 536 -600 Intake: Oral (ml) 800 536 Output: Urine (ml) 625 600 Urinal 625 600 Other: Weight 121.517 kg 121.517 kg Number of Voids Toilet 1 Result Diagrams: 07/08/18 03:35 07/08/18 03:35 - Physical Exam Constitutional: no apparent distress Eyes: PERRL Ears, Nose, Mouth, Throat: moist mucous membranes Cardiovascular: irregularly irregular Peripheral Pulses: 1+: femoral (R), femoral (L) Respiratory: clear to auscultate bilat Gastrointestinal: normoactive bowel sounds Genitourinary: no suprapubic tenderness Skin: no rashes Musculoskeletal: no muscular tenderness Neurologic: AAOx3 Psychiatric: cooperative ICD10 Worksheet Patient Problems: Problems Problem Status Onset Atrial fibrillation Acute Chest pain Acute History of coronary artery disease Acute
[2018-07-11] MEDS ORDERED: DEXMEDETOMIDINE HCL 400 MCG in NS 100 ML IV ONE (13:30)
[2018-07-11] MEDS ORDERED: MAGNESIUM HYDROXIDE 30 ML UDCUP PO PRN (13:55)
[2018-07-11] MEDS ORDERED: SODIUM CL NASAL 45 ML BTL EACHNARE PRN (13:55)
[2018-07-11] MEDS ORDERED: CEPACOL LOZENGE PO PRN (13:55)
[2018-07-11] MEDS ORDERED: LACTULOSE 20 GM/30 ML UDCUP PO PRN (13:55)
[2018-07-11] MEDS ORDERED: ACETAMINOPHEN 650 MG SUPP PR PRN (13:55)
[2018-07-11] MEDS ORDERED: POLYETHYLENE GLYCOL 3350 17 GM PKT PO PRN (13:55)
[2018-07-11] MEDS ORDERED: PANTOPRAZOLE SODIUM 40 MG VIAL IVP ONE ×2 (13:55→19:15)
[2018-07-11] MEDS ORDERED: BISACODYL 10 MG SUPP PR PRN (13:55)
[2018-07-11] MEDS ORDERED: MEPERIDINE 25 MG/0.5 ML AMP IVP PRN (13:55)
[2018-07-11] MEDS ORDERED: ONDANSETRON DISINTEGRATING 4 MG TAB PO PRN (13:55)
[2018-07-11] MEDS ORDERED: NS 1,000 ML IV SCH (14:00)
[2018-07-11] MEDS: INSULIN LISPRO 100 UNIT/ML SC SCH (14:03)
[2018-07-11] MEDS: LISINOPRIL 10 MG TAB PO SCH (14:03)
[2018-07-11] MEDS: METOPROLOL SUCCINATE XR 50 MG TAB PO SCH (14:04)
[2018-07-11] MEDS ORDERED: NALOXONE HCL 0.4 MG/ML INJ IVP PRN (14:28)
--- NOTE | 2018-07-11 14:28 | POSTANESTH ---
Post Anesthetic Evaluation Cardiovascular Status: Other, See Comment (Stable on infusions) Respiratory Status: Other, See Comment (stable on vent) Level of Consciousness/Mental Status: Other, See Comment (sedated) Pain Control: Adequate, Prn Tx Ordered Nausea/Vomiting Control: Adequate, Prn Tx Ordered Complications Possibly Related to Anesthesia: None Noted
[2018-07-11] MEDS: ceFAZolin 2 GM/DEXTROSE 100 ML IV SCH ×2 (16:00→22:15)
--- NOTE | 2018-07-11 16:00 | PDCONSULT ---
Press Cleaner Note: ASSESSMENT 62-year-old male with diabetes and severe coronary disease status post 3 vessel CABG and Hawthorne Maze procedure # CAD s/p prior PCI and 3vGABG 07/11/18. # post operative respiratory failure # post operative bleeding. required take back to OR # atrial fibrillation on Coreg and metoprolol as outpatient. S/p Hawthorne Maze Monitor for recurrence postoperatively # type 2 diabetes # coronary disease. Intolerant to statins outpatient need to rechallenge given recurrent disease. # obstructive sleep apnea. Difficulties with adherence as outpatient. Will use while hospitalized PLAN # repeat surgery per Kari # wean to extubate once patient returns from OR # ASA # CPAP for MARTY once extubated # aggressive pulmonary toilet # insulin gtt transitioned to SSI when clinically improved # Feeding - advance as tolerated # Analgesia APAP, fentanyl # Thromboprophylaxis - SQ hep # Head of bed elevated # Ulcer prophylaxis - ppi # Glucose SSI # Skin no skin breakdown # Delirium - delirium precautions EVENTS 07/11/2018 3 vessel CABG, maze, take back for bleeding DATA 07/09/2018 TTE-moderate LV diastolic dysfunction, [id number] aortic regurgitation 07/08/2018-coronary angiography-severe [place] vessel coronary disease and diagonal, critical obstruction of LAD, left circumflex CONSULT I was asked by Dr. Abdi hills end cardiothoracic surgery to evaluate this patient for postoperative ICU care Chief complaint Chest pain HPI Ruperto is a very pleasant 62-year-old male with multiple medical problems including type 2 diabetes, atrial fibrillation MARTY and coronary disease who was visiting from [place] who presented to the ER with chest pain. Prior to this admission he had a cardiac catheterization February 2018 which demonstrated a patent LAD 6 stent as well as left circumflex and PDA. While being hospitalized he was evaluated with a left heart catheterization found to have diffuse vessel disease. Patient was critically ill at time of interview and unable to provide meaningful history. HPI obtained from chart review and providers Allergies No known drug allergies Medications Medication reconciliation has been performed. 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 See EMR GEN: sedated NEURO: Intubated sedated, no obvious focal deficit HEENT: ET tube in place, pupils symmetric NECK: supple, trachea midline, IJ catheter in place CHEST sternotomy incision clean dry and intact, chest tubes in place with nighat blood CVS: Distant heart sounds, no proceeded murmurs rubs or gallops PULM: CTA B, no wheezes/rales/rhonchi ABD: soft, NT, ND, NABS EXT: no swelling, no cyanosis, full ROM SKIN: warm, dry, intact, no rash PSYCH sedated, unable to participate in exam
[2018-07-11 16:13] LABS: INR 1.61 (0.83-1.16); PROTIME(PATIENT) 18.4 SEC (12.0-15.0)
--- NOTE | 2018-07-11 17:35 | PDANEPAE ---
ANE History of Present Illness chest exploration ANE Past Medical History - Cardiovascular History Hx Hypertension: Yes Hx Arrhythmias: Yes Hx Chest Pain: Yes Hx Coronary Artery / Peripheral Vascular Disease: Yes Hx CHF / Valvular Disease: Yes Hx Palpitations: No - Pulmonary History Hx COPD: No Hx Asthma/Reactive Airway Disease: No Hx Recent Upper Respiratory Infection: No Hx Oxygen in Use at Home: No Hx Sleep Apnea: Yes Sleep Apnea Screening Result - Last Documented: Positive - Neurologic History Hx Cerebrovascular Accident: No Hx Seizures: No Hx Dementia: No - Endocrine History Hx Diabetes: Yes Hypothyroid: No Hyperthyroid: No Obesity: moderate - Renal History Hx Renal Disorders: No - Liver History Hx Hepatic Disorders: No - Chronic Pain History Chronic Pain: Yes (arthritis) ANE Review of Systems Review of Systems: - Exercise capacity Exercise capacity: <4 METS ANE Patient History - Allergies Allergies/Adverse Reactions: Hubvsrw-Mon-Buk Reductase Inhibitor Allergy (Verified 07/06/18 14:15) Memory Problems - Home Medications Home Medications: Lisinopril [Zestril 10 mg (*)] 10 mg PO DAILY 05/31/17 [Last Taken 07/06/18] traMADol [Ultram 50 mg (*)] 50 mg PO BID 05/31/17 [Last Taken 07/06/18] Apixaban [Eliquis] 5 mg PO BID 07/06/18 [Last Taken 07/06/18] Ergocalciferol [Vitamin D2 (*)] 50,000 unit PO MOFR 07/06/18 [Last Taken ] Insulin Glargine,Hum.rec.anlog [Basaglar Kwikpen U-100] 30 unit SQ HS 07/06/18 [ Last Taken 07/05/18] Insulin Lispro [Humalog] 12 unit SQ BID@07/06/18 [Last Taken 07/06/18] Insulin Lispro [Humalog] 14 unit SQ DAILY@12 07/06/18 [Last Taken 07/06/18] Metoprolol Succinate Xr [Toprol Xl 50 mg (*)] 50 mg PO DAILY 07/06/18 [Last Taken 07/06/18] Nitroglycerin [Nitrostat 0.4 mg (*)] 0.4 mg SL Q5M PRN 07/06/18 [Last Taken 3 TABS] Potassium Cl [Klor-Con 20 meq (*)] 20 meq PO DAILY 07/06/18 [Last Taken 07/06/18 ] - NPO status NPO Status: no food or drink >8 hours NPO Since - Liquids (Date): 07/10/18 NPO Since - Liquids (Time): 23:55 NPO Since - Solids (Date): 07/10/18 NPO Since - Solids (Time): 18:00 - Anes Hx Anes Hx: no prior problems - Smoking Hx Smoking Status: Never smoked ANE Labs/Vital Signs - Labs Result Diagrams: 07/08/18 03:35 07/08/18 03:35 - Vital Signs Blood Pressure: 109/78 Heart Rate: 76 Respiratory Rate: 21 O2 Sat (%): 97 Height: 190.5 cm Weight: 121.517 kg ANE Physical Exam - Airway Mouth exam: ETT in situ - Pulmonary Pulmonary: no respiratory distress - Cardiovascular Cardiovascular: regular rate and rhythym - ASA Status ASA Status: III, E ANE Anesthesia Plan Anesthesia Plan: general endotracheal anesthesia Urgent/Emergent Case: Dyllan nguyen completed preop but documented later for safe timely pt care
--- NOTE | 2018-07-11 17:41 | GOP ---
[f rep st] OPERATIVE REPORT DATE OF OPERATION: 07/11/2018 SURGEON: Abdi Pierce DO OYSTER SORTER: Cesilia PREOPERATIVE DIAGNOSIS: Unstable angina pectoris with 3-vessel coronary artery disease and paroxysmal atrial fibrillation. POSTOPERATIVE DIAGNOSIS: Unstable angina pectoris with 3-vessel coronary artery disease and paroxysmal atrial fibrillation. PROCEDURE PERFORMED: 1. Artery bypass grafting x3 with left internal mammary artery to the left anterior descending, right internal mammary artery to the diagonal, left radial to the posterior lateral circumflex. 2. Endoscopic vein harvest of the right lower leg. 3. Left radial artery harvest site. 4. Hawthorne-Maze IV biatrial sensing and testing. FINDINGS: DESCRIPTION OF PROCEDURE: Under general anesthetic, the patient was brought to the operating room, intubated monitoring lines were placed. He was prepped and draped in sterile classical manner. Sternotomy was performed. Both mammaries were harvested. They were good quality conduits. Simultaneously, the left radial and right lower vein were harvested endoscopically. Appropriate sensing and testing were then prior to radial harvesting and with clamping it, there was no change in pulse wave and an increase in the Doppler flow across the pulmonary arch with clamping of the artery. He was taken out. The wound was closed, as was the leg. We then heparinized the patient, cannulated him. Bypass was begun. We then encircled the right pulmonary veins and performed 9 or 10 ablation lines overlapping with 3 overlapping lines with the last of each 3 being less than 5 seconds. We then sensed him for entrance and exit block, it was confirmed. We then arrested the heart and performed radiofrequency ablation on the left side with 3 overlapping lines in standard fashion. We tested it for sensing and pacing at the end of the procedure and confirmed entrance and exit block. We then excised the tip of the left atrial appendage and placed a radiofrequency line across the left superior pulmonary vein from the appendage and placed a 40 mm clip across the base of the left atrial appendage. We then marked the terminus of the circumflex and right coronaries on the coronary sinus. We then exposed the mitral valve through the right superior pulmonary vein with retraction. We then performed a 3 minute cryo internally and externally overlapping the coronary sinus carmel and extending into the isthmus. We then performed roof in 4 lesions with radiofrequency ablation. The left atrium was closed in standard fashion. We then proceeded with grafting. The posterior lateral circumflex was a 1.5 mm vessel. It was grafted with excellent quality radial, which was then brought off the ascending aorta without difficulty. We then placed the PASCUAL to the diagonal, which was a 2.8 mm excellent quality vessel. An excellent mammary was tacked to the epicardium. There was no tension. We then brought the mammary to the mid LAD, which was diffusely diseased, but good quality vessel as far as size, it was 2.8 mm. It was tacked to the epicardium. The cross- clamp was removed with suction on the ascending aortic vent. We then spent some time placing caval tapes, which were secured. We opened the right atrium with a distal atriotomy. We performed a superior and inferior vena caval radiofrequency ablation line, as well as the free wall and a cryo ablation isthmus line. The atrium was closed in a 2 -layer fashion. Patient was then de -aired, rewarmed, weaned from bypass. The heparin was reversed with protamine. Cannula was removed and oversewn. Strict hemostasis was obtained. Thymic fat and pericardium were closed with 2 pleural and 1 mediastinal drain. V wires had been placed. The sternum was closed in standard fashion. He was returned to ICU in stable condition. /[id number]/MODL MTDD
[2018-07-11] MEDS: INSULIN REGULAR HUMAN 100 UNIT in NS 100 ML IV SCH (17:43)
--- NOTE | 2018-07-11 18:01 | GOP ---
[f rep st] OPERATIVE REPORT DATE OF OPERATION: 07/11/2018 SURGEON: Abdi Pierce DO TELEGRAPH REPEATER INSTALLER: Bob ANESTHESIA: Musa. PREOPERATIVE DIAGNOSIS: Mediastinal hemorrhage. POSTOPERATIVE DIAGNOSIS: Mediastinal hemorrhage. PROCEDURE PERFORMED: Mediastinal reexploration with control of bleeding. FINDINGS: DESCRIPTION OF PROCEDURE: Patient had persistent bleeding in the first hour after surgery. He was taken back to the operating room hemodynamically stable. A sternotomy was repeated. We then explored the chest. There was bleeding from needle holes sites from the sternal wires and there was a single branch off the right internal mammary artery, which was oozing, which was clipped. We then found chest wall bleeding at the distal terminus of the right internal mammary artery harvest site, which was oversewn. We then irrigated the chest, closed the chest in the standard fashion. Patient was returned to recovery room stable condition. /[id number]/MODL MTDD
[2018-07-11] MEDS: ALBUMIN 5% 250 ML IV PRN ×2 (18:30→19:00)
[2018-07-11] MEDS ORDERED: SODIUM BICARBONATE 50 MEQ/50 ML SYR IVP ONE ×3 (18:30→19:45)
[2018-07-11] MEDS ORDERED: *ANGINA PROTOCOL*NITROGLYCERIN/DEXTR IV SCH (19:00)
[2018-07-11] MEDS ORDERED: ALBUMIN 5% 250 ML IV ONE ×3 (19:00→23:00)
[2018-07-11] MEDS: fentaNYL 100 MCG/2 ML INJ IVP PRN ×2 (19:42→21:21)
[2018-07-11] MEDS: POTASSIUM Cl (KCl) 50 ML IV PRN (21:23)
[2018-07-11] MEDS: FUROSEMIDE 20 MG TAB PO SCH (21:27)
[2018-07-11] MEDS: traMADol 50 MG TAB PO SCH (21:27)
[2018-07-11] MEDS: POTASSIUM CL 20 MEQ TAB PO SCH (21:27)
[2018-07-11] MEDS: MUPIROCIN 2% 22 GM OINT NS SCH (21:28)
[2018-07-11] MEDS: ONDANSETRON 4 MG/2 ML VIAL IVP PRN (22:57)
[2018-07-11] MEDS: METOCLOPRAMIDE 10 MG/2 ML VIAL IVP PRN (22:57)
[2018-07-12] MEDS: INSULIN REGULAR HUMAN 100 UNIT in NS 100 ML IV SCH ×2 (00:07→10:50)
[2018-07-12] MEDS: POTASSIUM Cl (KCl) 50 ML IV PRN ×2 (00:09→04:14)
[2018-07-12] MEDS: HYDROCODONE/APAP 5/325 TAB PO PRN ×4 (03:08→20:55)
[2018-07-12] MEDS: ALBUMIN 5% 250 ML IV PRN ×2 (04:10→05:05)
[2018-07-12] MEDS: ONDANSETRON 4 MG/2 ML VIAL IVP PRN (05:21)
[2018-07-12] MEDS: METOCLOPRAMIDE 10 MG/2 ML VIAL IVP PRN (05:21)
[2018-07-12 05:29] LABS: PLATELET COUNT 85 10^3/uL (150-400)
[2018-07-12 05:35] LABS: INR 1.59 (0.83-1.16); PROTIME(PATIENT) 18.2 SEC (12.0-15.0)
[2018-07-12] MEDS: HEPARIN 5,000 UNIT/0.5 ML INJ SC SCH ×4 (05:39→20:53)
--- NOTE | 2018-07-12 06:45 | SOAPPROG ---
SOAP Progress Note Assessment/Plan: POD #1: urgent CABGx3 (ARAUJO-LAD, PASCUAL-diag, LRA-PL circ), Hawthorne-Maze IV with AtriClip exclusion WILLIAM, open harvest LRA, EVH RLE (not used) POD #1: mediastinal re-exploration for bleeding with hemostasis Unstable angina s/p urgent CABGx3 - CT to bulbs/AL&FC out - BB/ASA/statin for secondary prevention when appropriate - Continue low-dose nitro glycerin for RA graft spasm prophylaxis with transition to oral CCB today for 30 days in total - PT/OT Paroxysmal atrial fibrillation s/p Hawthorne-Maze IV - Beta kasey for AF prophylaxis when appropriate - Coumadin for thromboprophylaxis with INR goal of 2-3, duration as per CM protocol (3-6 months) pending stability of rhythm - Plan to start Coumadin tomorrow as INR elevated post OHS Acute post-op blood loss anemia with coagulopathy - Transfuse 2 units of PRBCs this AM for low H/H and hypotension - 2 PRBCs, 1 cryo, 1 platelet transfused 06/14 - Monitor H/H, CT output DM, poorly controlled by A1c of 8.5% - Insulin gtt with transition to ISS today - Further mgmt as per hospitalist DVT prophylaxis - SCDs/heparin SQ Disposition - Likely transfer to PCU later tofay once off insulin gtt Subjective: Has some incisional pain/denies SOB. Objective: Vital Signs Temp Pulse Resp BP Pulse Ox 37.2 C 82 18 115/51 L 95 07/12/18 04:00 07/12/18 06:00 07/12/18 06:00 07/12/18 06:00 07/12/18 06:00 Laboratory Results 07/12/18 05:05 07/12/18 05:05 07/11/18 07/12/18 07/13/18 05:59 05:59 05:59 Intake Total 536 1800 Output Total 2435 Balance 536 -635 PT 18.2 SEC (12.0-15.0) H 07/12/18 05:05 INR 1.59 (0.83-1.16) H 07/12/18 05:05 Physical Exam - Physical Exam General Appearance: alert, mild distress, obese EENT: No scleral icterus (R), No scleral icterus (L) Respiratory: No respiratory distress Cardiac/Chest: regular rate, rhythm Abdomen: non-tender, soft, No distended Skin: normal color, warm/dry Extremities: pedal edema Neuro/Psych: no motor/sensory deficits, other (lethargic) ICD10 Worksheet Patient Problems: Problems Problem Status Onset Acute blood loss anemia Acute Atrial fibrillation Acute Chest pain Acute S/P CABG x 3 Acute S/P left atrial appendage ligation Acute Status post circumferential ablation of pulmonary vein Acute History of coronary artery disease Acute
[2018-07-12] MEDS: ceFAZolin 2 GM/DEXTROSE 100 ML IV SCH ×3 (07:47→22:16)
[2018-07-12] MEDS: MUPIROCIN 2% 22 GM OINT NS SCH ×2 (07:48→20:57)
[2018-07-12] MEDS: fentaNYL 100 MCG/2 ML INJ IVP PRN ×3 (08:00→15:07)
--- NOTE | 2018-07-12 08:54 | HOSPPROG ---
Hospitalist Progress Note Assessment/Plan: DIAGNOSES: * Unstable angina pectoralis * Diffuse 3 vessel coronary artery disease * Status post CABG/Maze 07/11, with subsequent bleed from mammary artery graft, taken back to OR for repair * Post hemorrhagic anemia, status post transfusion of packed red blood cells * Chronic atrial fibrillation now status post Maze procedure in sinus rhythm * Diabetes mellitus currently on insulin drip * Hypercholesterolemia LDL 115 - previous intolerance to statins * Obesity * Chronic obstructive sleep apnea -this will need long-term attention * Hypertension PLANS: * Continue current insulin drip titrate dose up to get sugar in target range by protocol * Follow for any further signs of bleeding * Otherwise routine postop management Seen by me today in ICU after his 2nd surgery I reviewed in detail with Teo Deshpande of cardiovascular surgery SUBJECTIVE: Patient is currently intubated and sedated in the ICU He had his surgery with no improved operative complications and brought back to ICU. Following this he had significant bleeding from chest tube and was taken back to OR, found to have bleeding from a mammary artery graft and this was repaired. He is now back in the ICU after that, not having significant bleeding. His on mechanical ventilator and ventilating easily with expected oxygen need; He is on insulin drip at high dose with sugars over 200 at the moment OBJECTIVE Vitals reviewed: Blood pressures and pulse good, respirations per vent, no fever Bench Technician, my review: AFib rate controlled Exam: Sedated, starting to wake up slowly Skin pale otherwise warm, good perfusion of hands and feet Or tracheal tube is in place and secured no active bleeding from chest tube at this time Lungs clear Heart regular Some edema at ankles new line abdomen soft nondistended iv site ok Lab data: Sugars currently higher than target with insulin drip being titrated up currently at 6.5 units/hour sugars just over 200 Postop hemoglobin 9.5 Metabolic panel stable Objective: Vital Signs Temp Pulse Resp BP Pulse Ox 36.5 C 77 14 110/54 L 98 07/12/18 08:00 07/12/18 08:00 07/12/18 08:00 07/12/18 08:00 07/12/18 08:00 Laboratory Results 07/12/18 05:05 07/12/18 05:05 07/11/18 07/12/18 07/13/18 06:59 06:59 06:59 Intake Total 536 3792 540 Output Total 600 1835 140 Balance -64 1957 400 PT 18.2 SEC (12.0-15.0) H 07/12/18 05:05 INR 1.59 (0.83-1.16) H 07/12/18 05:05 - Time Spent With Patient Time Spent with Patient: greater than 35 minutes Time Spent with Patient: Greater than 35 minutes spent on this patients care, greater than 50% of time spent counseling, educating, and coordinating care regarding the above mentioned plan. ICD10 Worksheet Patient Problems: Problems Problem Status Onset Acute blood loss anemia Acute Atrial fibrillation Acute Chest pain Acute S/P CABG x 3 Acute S/P left atrial appendage ligation Acute Status post circumferential ablation of pulmonary vein Acute History of coronary artery disease Acute
--- NOTE | 2018-07-12 08:58 | HOSPPROG ---
Hospitalist Progress Note Assessment/Plan: DIAGNOSES: * Unstable angina pectoralis * Diffuse 3 vessel coronary artery disease * Status post CABG/Maze 07/11, with subsequent bleed from mammary artery graft, taken back to OR for repair * Post hemorrhagic anemia, status post transfusion of packed red blood cells * Chronic atrial fibrillation now status post Maze procedure in sinus rhythm * Diabetes mellitus currently on insulin drip * Hypercholesterolemia LDL 115 - previous intolerance to statins * Obesity * Chronic obstructive sleep apnea -this will need long-term attention * Hypertension PLANS: * Continue current insulin drip; I reviewed plans with nursing before we switch from insulin drip to subcu this evening * Is receiving another unit of red cell transfusion at this time because of his orthostasis * Follow for any further signs of bleeding * Otherwise routine postop management * Continued attempts through the day to get him up and mobilized Seen by me today in ICU I reviewed in detail with Teo Deshpande of cardiovascular surgery SUBJECTIVE: Patient is now off mechanical ventilator breathing nasal cannula oxygen He is having chest pain and leg pain No nausea no shortness of breath Did have symptomatic orthostasis of significant severity when attempting to get up on feet this morning Remains on insulin drip now down to the 2 units and sugars are in target range OBJECTIVE Vitals reviewed: Blood pressures and pulse good in bed, respirations normal, 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, 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: Sinus Exam: Still groggy but awake and interactive Skin pale otherwise warm, good perfusion of hands and feet no active bleeding from chest tube at this time Lungs few rales Heart regular Some edema at ankles new line abdomen soft nondistended iv site ok Lab data: Sugars currently in target range on insulin drip which is plan to switch to subcu around 530 this evening Hemoglobin down a bit at 8.2; platelets down at a 5000 Metabolic panel stable Objective: Vital Signs Temp Pulse Resp BP Pulse Ox 36.5 C 77 14 110/54 L 98 07/12/18 08:00 07/12/18 08:00 07/12/18 08:00 07/12/18 08:00 07/12/18 08:00 Laboratory Results 07/12/18 05:05 07/12/18 05:05 07/11/18 07/12/18 07/13/18 06:59 06:59 06:59 Intake Total 536 3792 540 Output Total 600 1835 140 Balance -64 1957 400 PT 18.2 SEC (12.0-15.0) H 07/12/18 05:05 INR 1.59 (0.83-1.16) H 07/12/18 05:05 - Time Spent With Patient Time Spent with Patient: greater than 35 minutes Time Spent with Patient: Greater than 35 minutes spent on this patients care, greater than 50% of time spent counseling, educating, and coordinating care regarding the above mentioned plan. ICD10 Worksheet Patient Problems: Problems Problem Status Onset Acute blood loss anemia Acute Atrial fibrillation Acute Chest pain Acute S/P CABG x 3 Acute S/P left atrial appendage ligation Acute Status post circumferential ablation of pulmonary vein Acute History of coronary artery disease Acute
[2018-07-12] MEDS: amLODIPine BESYLATE 5 MG TAB PO SCH (09:54)
--- NOTE | 2018-07-12 11:13 | ASMTCMCOM ---
CM Note CM Note Notes: Patient is POD #1 CABG x 3, extubated and doing well. Therapies have been ordered. Case Management will follow for discharge planning. Date Signed: 07/12/2018 11:12 AM Electronically Signed By:Jen Read RN
[2018-07-12] MEDS: ASPIRIN 81 MG CHEWABLE TAB PO SCH (13:44)
[2018-07-12] MEDS ORDERED: ASPIRIN 81 MG CHEWABLE TAB TUBE PRN (13:55)
--- NOTE | 2018-07-12 15:23 | PDINTPN ---
Sql Data Analyst Progress Note Assessment/Plan: Assessment: ASSESSMENT 62-year-old male with diabetes and severe coronary disease status post 3 vessel CABG and Haw[place] Maze procedure # CAD s/p prior PCI and 3vGABG 07/11/18. # post operative respiratory failure, resolved # post operative bleeding. resolved # atrial fibrillation on Coreg and metoprolol as outpatient. S/p Haw[place]orne Maze Monitor for recurrence postoperatively # type 2 diabetes # coronary disease. Intolerant to statins outpatient need to rechallenge given recurrent disease. # obstructive sleep apnea. Difficulties with adherence as outpatient due to claustrophobia with full facemask. Needs OP follow up. # obesity PLAN # aggressive pulmonary toilet # PRBC for hypotension and blood loss # ASA # insulin # warfarin # Feeding - cardiac diet # Analgesia APAP, dilaudid # Thromboprophylaxis - SQ hep # Head of bed elevated # Ulcer prophylaxis - ppi # Glucose SSI # Skin no skin breakdown # Delirium - delirium precautions EVENTS 07/11/2018 3 vessel CABG, maze, take back for bleeding DATA 07/09/2018 TTE-moderate LV diastolic dysfunction, [id number] aortic regurgitation 07/08/2018-coronary angiography-severe [place] vessel coronary disease and diagonal, critical obstruction of LAD, left circumflex Status post CABG/Maze 07/11, with subsequent bleed from mammary artery graft, taken back to OR for repair Subjective: CABG and Maze procedure yesterday. Required take back to OR due to minimally rebleed. Resolved. Extubated. Some pain overnight but overall doing well. No fevers, chills, nausea, vomiting Objective: Vital Signs Temp Pulse Resp BP Pulse Ox 36.5 C 78 12 98/55 L 92 07/12/18 15:00 07/12/18 15:00 07/12/18 15:00 07/12/18 15:00 07/12/18 15:00 Laboratory Results 07/12/18 05:05 07/12/18 13:40 07/11/18 07/12/18 07/13/18 05:59 05:59 05:59 Intake Total 536 3792 1580 Output Total 9639 595 Balance 536 1357 985 PT 18.2 SEC (12.0-15.0) H 07/12/18 05:05 INR 1.59 (0.83-1.16) H 07/12/18 05:05 Physical Exam - Physical Exam General Appearance: alert, no apparent distress EENT: PERRL/EOMI, normal ENT inspection Neck: non-tender (IJ catheter in place), full range of motion, other (Right) Respiratory: chest non-tender, lungs clear, normal breath sounds Cardiac/Chest: other (Mediastinal drains in place, pericardial rub, no murmurs or gallops) Abdomen: normal bowel sounds, non-tender, soft Skin: normal color, warm/dry, No cyanosis Neuro/Psych: no motor/sensory deficits, alert, normal mood/affect, oriented x 3 ICD10 Worksheet Patient Problems: Problems Problem Status Onset Acute blood loss anemia Acute Atrial fibrillation Acute Chest pain Acute S/P CABG x 3 Acute S/P left atrial appendage ligation Acute Status post circumferential ablation of pulmonary vein Acute History of coronary artery disease Acute
[2018-07-12] MEDS ORDERED: morphINE PCA 30 MG/30 ML PCA IV PRN (16:21)
[2018-07-12] MEDS ORDERED: NALOXONE HCL 0.4 MG/ML INJ IVP PRN (16:21)
[2018-07-12] MEDS ORDERED: morphINE PCA 30 MG/30 ML PCA IV ONE (16:22)
[2018-07-12] MEDS ORDERED: INSULIN LISPRO 100 UNIT/ML SC ONE ×2 (17:13→17:20)
[2018-07-12] MEDS: PANTOPRAZOLE SODIUM 40 MG TAB PO SCH (20:55)
[2018-07-12] MEDS: INSULIN LISPRO 100 UNIT/ML SC SCH (22:16)
[2018-07-13] MEDS: INSULIN LISPRO 100 UNIT/ML SC SCH ×6 (02:15→21:47)
[2018-07-13] MEDS: HYDROCODONE/APAP 5/325 TAB PO PRN (02:22)
[2018-07-13 05:31] LABS: PLATELET COUNT 80 10^3/uL (150-400)
[2018-07-13] MEDS: HEPARIN 5,000 UNIT/0.5 ML INJ SC SCH ×2 (05:36→07:26)
[2018-07-13 05:47] LABS: INR 1.51 (0.83-1.16); PROTIME(PATIENT) 17.5 SEC (12.0-15.0)
--- NOTE | 2018-07-13 06:32 | CPEKG ---
Test Reason : OPEN Blood Pressure : / mmHG Vent. Rate : 069 BPM Atrial Rate : 069 BPM P-R Int : 214 ms QRS Dur : 101 ms QT Int : 474 ms P-R-T Axes : 086 -44 076 degrees QTc Int : 508 ms Sinus rhythm Borderline prolonged ID interval Left axis deviation Low voltage, extremity and precordial leads Probable anteroseptal infarct, old Confirmed by Jesús Massey ([id number]) on 07/13/2018 6:32:40 AM Referred By: Abdi Pierce Confirmed By:Jesús Massey
--- NOTE | 2018-07-13 08:19 | SOAPPROG ---
SOAP Progress Note Assessment/Plan: Assessment: POD#2 Urgent CABGx3 (ARAUJO-LAD, PASCUAL-diag, LRA-PLC), Hawthorne-Maze IV, open harvest left radial artery, EVH RLE (not used) POD#2 Mediastinal re-exploration for bleeding. Chest closed with alfredito. Sx progressive left sided CAD w patent PDA stents - s/p urgent CABGx3 complicated by coagulopathy necessitating take back exploration. PASCUAL bleeders identified, coagulopathy corrected, and hemostasis achieved. Extubated without incident. Secondary prevention with baby ASA (so long as plt > 50). BB, statin and plavix when appropriate. RA graft antispasm prophylaxis w CCB x 30 days. Ischemic cardiomyopathy - Preop LVEF ~40% w RWMA. Improved LV systolic fx post revasc. No postop pressor support. Moderate volume overload well tolerated. Staggered intro of heart failure regimen as tolerated. Paroxysmal atrial fibrillation/chronic anticoagulation on Eliquis - s/p Maze. Postop rhythm sinus. AF prophylaxis with maintenance dose amio and CCB. Adjunctive beta kasey as allowed by BP. Antithrombotic prophylaxis switch to Coumadin once coagulopathy resolved. INR goal of 2-3, duration as per Maze protocol. Acute expected blood loss anemia with thrombocytopenia and coagulopathy - Exacerbated by incomplete washout of Plavix prior to surgery. Stable s/p 5u PRBC , 1u Plt and 1u cryo. VTE prophylaxis w SCDs. Care with anticoagulation while plt count depressed. DM2 - Poorly controlled by preop A1c of 8.5%. Postop hyperglycemia managed with insulin gtt. Transition to basal/bolus insulin per hospitalist. Dilated ascending aorta with mild AI - No surgical intervention deemed necessary. Surveillance per cards. Plan: Consider removal mediastinal and rt pleural drain later today. Decrease Norvasc to 2.5 mg daily. Start metoprolol tartrate 12.5 mg BID. Start amio 200 mg tonight. Start oral lasix 40 mg BID. Reconsider coumadin tomorrow pending INR. Tx to PCU. 07/13/18 08:17 Subjective: Improved pain control. Beginning to ambulate. Appetite remains poor. Objective: Vital Signs Temp Pulse Resp BP Pulse Ox 37 C 92 16 116/66 97 07/13/18 00:00 07/13/18 07:00 07/13/18 07:00 07/13/18 07:00 07/13/18 07:00 Laboratory Results 07/13/18 05:22 07/13/18 05:22 07/12/18 07/13/18 07/14/18 05:59 05:59 05:59 Intake Total 3792 3328 Output Total 2435 1795 150 Balance 1357 1533 -150 PT 17.5 SEC (12.0-15.0) H 07/13/18 05:22 INR 1.51 (0.83-1.16) H 07/13/18 05:22 Holding SR and MAPs > 80. Stable 3 lpm suppl O2 req. CXR-> hypoventilation, bibasilar atelectasis, no sig pulm vasc congestion. Positive fluid balance. +7 kg overall. Dissipating CTOP. Plt appear to be plateauing. INR decr appropriately. Physical Exam - Physical Exam General Appearance: alert, no apparent distress Respiratory: decreased breath sounds (bases), other (blakes x 3 to bulb suction , serosang drainage) Cardiac/Chest: regular rate, rhythm, other (Sternal dressing CDI. Vwires intact. ) Abdomen: normal bowel sounds, non-tender, soft Skin: warm/dry Extremities: swelling (1+ gen), other (LR arteriotomy CDI. CSM intact. RLE venotomy CDI.) ICD10 Worksheet Patient Problems: Problems Problem Status Onset Acute blood loss anemia Acute Atrial fibrillation Acute Chest pain Acute S/P CABG x 3 Acute S/P left atrial appendage ligation Acute Status post circumferential ablation of pulmonary vein Acute History of coronary artery disease Acute
[2018-07-13] MEDS: PANTOPRAZOLE SODIUM 40 MG TAB PO SCH (08:34)
[2018-07-13] MEDS: amLODIPine BESYLATE 5 MG TAB PO SCH (08:35)
[2018-07-13] MEDS: MUPIROCIN 2% 22 GM OINT NS SCH (09:00)
[2018-07-13] MEDS: ASPIRIN 81 MG CHEWABLE TAB PO SCH (09:40)
[2018-07-13] MEDS ORDERED: fentaNYL 100 MCG/2 ML INJ IVP ONE (09:41)
[2018-07-13] MEDS ORDERED: fentaNYL 100 MCG/2 ML INJ ONE (11:12)
--- NOTE | 2018-07-13 14:02 | PDINTPN ---
Cdl Service Technician Progress Note Assessment/Plan: Assessment: ASSESSMENT 62-year-old male with diabetes and severe coronary disease status post 3 vessel CABG and Hawthorne Maze procedure # CAD s/p prior PCI and 3vGABG 07/11/18. # R radial graft. on CCB to prevent spasm # post operative respiratory failure, resolved # post operative bleeding. resolved # atrial fibrillation on Coreg and metoprolol as outpatient. S/p Hawthorne Maze Monitor for recurrence postoperatively # type 2 diabetes # coronary disease. Intolerant to statins outpatient need to rechallenge given recurrent disease. # obstructive sleep apnea. Difficulties with adherence as outpatient due to claustrophobia with full facemask. Needs OP follow up. # obesity PLAN # ASA, beta kasey, statin for CAD # transitioning insulin gtt to basal + bolus. # warfarin # consider lasix for hypervolemia now that BP has improved # Feeding - cardiac diet # Analgesia APAP, oxy # Thromboprophylaxis - SQ hep, warfarin # Head of bed elevated # Ulcer prophylaxis - ppi # Glucose SSI # Skin no skin breakdown # Delirium - delirium precautions EVENTS 07/11/2018 3 vessel CABG, maze, OR take back for bleeding DATA 07/09/2018 TTE-moderate LV diastolic dysfunction, [id number] aortic regurgitation 07/08/2018-coronary angiography-severe [place] vessel coronary disease and diagonal, critical obstruction of LAD, left circumflex Status post CABG/Maze 07/11, with subsequent bleed from PASCUAL, taken back to OR for repair 07/13/18 14:02 Subjective: Slept well overnight. Patient has weaned off of vasopressors. Still a chest pain. Maintained in normal sinus rhythm. No fevers, chills, nausea vomiting. Objective: Vital Signs Temp Pulse Resp BP Pulse Ox 37.1 C 100 20 131/70 H 93 07/13/18 12:00 07/13/18 12:00 07/13/18 12:00 07/13/18 12:00 07/13/18 12:00 Laboratory Results 07/13/18 05:22 07/13/18 05:22 07/12/18 07/13/18 07/14/18 05:59 05:59 05:59 Intake Total 3792 3328 Output Total 2435 1795 200 Balance 1357 1533 -200 PT 17.5 SEC (12.0-15.0) H 07/13/18 05:22 INR 1.51 (0.83-1.16) H 07/13/18 05:22 Physical Exam - Physical Exam General Appearance: alert, no apparent distress EENT: PERRL/EOMI, normal ENT inspection, other (Mallampati 4) Neck: other (Right IJ in place, Wolfgang) Cardiac/Chest: normal peripheral pulses, regular rate, rhythm, edema, other ( Sternotomy incision clean dry and intact. Drain in place) Abdomen: normal bowel sounds, non-tender Back: Normal inspection Skin: normal color, warm/dry, No cyanosis Extremities: normal range of motion, non-tender Neuro/Psych: no motor/sensory deficits, alert, normal mood/affect, oriented x 3 ICD10 Worksheet Patient Problems: Problems Problem Status Onset Acute blood loss anemia Acute Atrial fibrillation Acute Chest pain Acute S/P CABG x 3 Acute S/P left atrial appendage ligation Acute Status post circumferential ablation of pulmonary vein Acute History of coronary artery disease Acute
[2018-07-13] MEDS: FUROSEMIDE 40 MG TAB PO SCH (15:16)
[2018-07-13] MEDS: POTASSIUM CL 10 MEQ TAB PO SCH ×2 (15:19→21:35)
--- NOTE | 2018-07-13 17:15 | HOSPPROG ---
Hospitalist Progress Note Assessment/Plan: 62 year old male with CAD status post CABG/Maze. DIAGNOSES: * Unstable angina pectoralis * Diffuse 3 vessel coronary artery disease * Status post CABG/Maze 07/11, with subsequent bleed from mammary artery graft, taken back to OR for repair * Post hemorrhagic anemia, status post transfusion of packed red blood cells * Chronic atrial fibrillation now status post Maze procedure in sinus rhythm * Diabetes mellitus- off insulin gtt. currently on modified SSI. not taking great PO. would continue currnent regimen and hold basal. * Hypercholesterolemia LDL 115 - previous intolerance to statins * Obesity * Chronic obstructive sleep apnea -this will need long-term attention * Hypertension PLANS: * Continue insulin at 2 units if below 110 and 4 if above. will add SSI as sugars climb and PO intake increases. * Monitor H/H for further signs of bleeding. * Otherwise routine postop management * Continued attempts through the day to get him up and mobilized Subjective: still with chest discomfort. not taking great PO Objective: Vital Signs Temp Pulse Resp BP Pulse Ox 37.5 C 96 20 137/77 H 92 07/13/18 16:00 07/13/18 16:00 07/13/18 16:00 07/13/18 16:00 07/13/18 16:00 Laboratory Results 07/13/18 05:22 07/13/18 16:30 07/12/18 07/13/18 07/14/18 05:59 05:59 05:59 Intake Total 3792 3328 300 Output Total 2435 1795 1750 Balance 1357 1533 -1450 PT 17.5 SEC (12.0-15.0) H 07/13/18 05:22 INR 1.51 (0.83-1.16) H 07/13/18 05:22 - Physical Exam Constitutional: no apparent distress, appears nourished, not in pain Eyes: PERRL, anicteric sclera, EOMI Ears, Nose, Mouth, Throat: moist mucous membranes, hearing normal, ears appear normal, no oral mucosal ulcers Cardiovascular: regular rate and rhythym Respiratory: no respiratory distress, no rales or rhonchi Gastrointestinal: soft, non-tender abdomen, no palpable masses Genitourinary: no bladder fullness Skin: warm, normal color Musculoskeletal: generalized weakness Neurologic: AAOx3 Psychiatric: interacting appropriately Lymph, Heme, Immunologic: no cervical LAD ICD10 Worksheet Patient Problems: Problems Problem Status Onset Acute blood loss anemia Acute Atrial fibrillation Acute Chest pain Acute S/P CABG x 3 Acute S/P left atrial appendage ligation Acute Status post circumferential ablation of pulmonary vein Acute History of coronary artery disease Acute
[2018-07-13] MEDS: traMADol 50 MG TAB PO PRN (19:47)
[2018-07-13] MEDS: ACETAMINOPHEN 325 MG TAB PO PRN (19:47)
[2018-07-13] MEDS: METOPROLOL TARTRATE 25 MG TAB PO SCH (21:35)
[2018-07-13] MEDS: SENNOSIDES/DOCUSATE SODIUM TAB PO SCH (21:35)
[2018-07-13] MEDS: AMIODARONE HCL 200 MG TAB PO SCH (21:35)
[2018-07-14] MEDS: ACETAMINOPHEN 325 MG TAB PO PRN ×3 (02:03→17:23)
[2018-07-14] MEDS: traMADol 50 MG TAB PO PRN ×4 (02:04→21:26)
[2018-07-14] MEDS: INSULIN LISPRO 100 UNIT/ML SC SCH ×6 (02:18→21:26)
[2018-07-14 05:28] LABS: INR 1.3 (0.83-1.16); PROTIME(PATIENT) 15.6 SEC (12.0-15.0)
--- NOTE | 2018-07-14 07:43 | SOAPPROG ---
SOAP Progress Note Assessment/Plan: Assessment: POD#3 Urgent CABGx3 (ARAUJO-LAD, PASCUAL-diag, LRA-PLC), Hawthorne-Maze IV, open harvest left radial artery, EVH RLE (not used); Mediastinal re-exploration for bleeding. Chest closed with alfredito. Sx progressive left sided CAD w patent PDA stents - s/p urgent CABGx3 complicated by coagulopathy necessitating take back exploration. PASCUAL bleeders identified, coagulopathy corrected, and hemostasis achieved. Extubated without incident. Secondary prevention with baby ASA, BB. Allergy to statins (memory issues). RA graft antispasm prophylaxis w CCB x 30 days. Previously on Plavix, however, completely revascularization w new grafts. Ischemic cardiomyopathy - Preop LVEF ~40% w RWMA. Improved LV systolic fx post revasc. No postop pressor support. Moderate volume overload well tolerated. Staggered intro of heart failure regimen as tolerated. Paroxysmal atrial fibrillation/chronic anticoagulation on Eliquis - s/p CM4. Postop rhythm sinus. AF prophylaxis with maintenance dose amio, CCB, and BB. Antithrombotic prophylaxis switch to Coumadin once coagulopathy resolved. INR goal of 2-3, duration as per Maze protocol. Acute expected blood loss anemia with thrombocytopenia and coagulopathy - Exacerbated by incomplete washout of Plavix prior to surgery. Stable s/p 5u PRBC , 1u Plt and 1u cryo. VTE prophylaxis w SCDs. Care with anticoagulation while plt count depressed. DM2 - Poorly controlled by preop A1c of 8.5%. Postop hyperglycemia managed with insulin gtt. Transition to basal/bolus insulin per hospitalist. Dilated ascending aorta with mild AI - No surgical intervention deemed necessary. Surveillance per cards. Post-op delirium - improved from yesterday. Avoid narcotics when possible. Plan: Transfer from SDU to PCU status Will d/w Dr. Quinteros starting flomax re: urinary retention Chest tube too much to pull Poss Coumadin tomorrow pending INR Inc BB CBC/BMP tomorrow Anticipate SNF in [place] per patient request Subjective: Doing much better today. Objective: Vital Signs Temp Pulse Resp BP Pulse Ox 37.6 C 80 14 122/71 H 92 07/14/18 04:00 07/14/18 04:00 07/14/18 04:00 07/14/18 04:00 07/14/18 04:00 Laboratory Results 07/14/18 05:00 07/14/18 05:00 07/13/18 07/14/18 07/15/18 05:59 05:59 05:59 Intake Total 3328 1250 Output Total 1795 2610 Balance 1533 -1360 PT 15.6 SEC (12.0-15.0) H 07/14/18 05:00 INR 1.30 (0.83-1.16) H 07/14/18 05:00 - Physical Exam General Appearance: alert, no apparent distress Respiratory: decreased breath sounds (bases), other (blakes x 1 to bulb suction , serosang drainage) Cardiac/Chest: regular rate, rhythm, other (Sternal dressing CDI. Vwires intact. ) alfredito Abdomen: normal bowel sounds, non-tender, soft Skin: warm/dry Extremities: swelling (1+ gen), other (LR arteriotomy CDI. CSM intact. RLE venotomy CDI.) No new sensation or motor deficit in left hand. ICD10 Worksheet Patient Problems: Problems Problem Status Onset Acute blood loss anemia Acute Atrial fibrillation Acute Chest pain Acute S/P CABG x 3 Acute S/P left atrial appendage ligation Acute Status post circumferential ablation of pulmonary vein Acute History of coronary artery disease Acute
[2018-07-14] MEDS: PANTOPRAZOLE SODIUM 40 MG TAB PO SCH (08:42)
[2018-07-14] MEDS: SENNOSIDES/DOCUSATE SODIUM TAB PO SCH ×2 (08:42→21:26)
[2018-07-14] MEDS: ASPIRIN 81 MG CHEWABLE TAB PO SCH (08:42)
[2018-07-14] MEDS: FUROSEMIDE 40 MG TAB PO SCH ×2 (08:42→14:48)
[2018-07-14] MEDS: METOPROLOL TARTRATE 25 MG TAB PO SCH ×2 (08:43→21:27)
[2018-07-14] MEDS: amLODIPine BESYLATE 5 MG TAB PO SCH (08:43)
[2018-07-14] MEDS: POTASSIUM CL 10 MEQ TAB PO SCH ×2 (08:43→21:26)
--- NOTE | 2018-07-14 13:26 | ASMTCMCOM ---
CM Note CM Note Notes: Therapies and MD recommending SNF. Patient's will be staying in [place] and has requested a facility near there. I have sent out a few referrals, but we will likely have to wait until Monday, 07/16 because of insurance authorization. Case Management will follow. Current CM discharge plan: SNF, location tBD Date Signed: 07/14/2018 01:25 PM Electronically Signed By:Jen Read RN
[2018-07-14] MEDS: AMIODARONE HCL 200 MG TAB PO SCH (21:27)
--- NOTE | 2018-07-14 22:02 | HOSPPROG ---
Hospitalist Progress Note Assessment/Plan: 62 year old male with CAD status post CABG/Maze. DIAGNOSES: * Unstable angina pectoralis * Diffuse 3 vessel coronary artery disease * Status post CABG/Maze 07/11, with subsequent bleed from mammary artery graft, taken back to OR for repair * Post hemorrhagic anemia, status post transfusion of packed red blood cells * Chronic atrial fibrillation now status post Maze procedure in sinus rhythm * Diabetes mellitus- off insulin gtt. currently on modified SSI. not taking great PO. would continue currnent regimen and hold basal. * Hypercholesterolemia LDL 115 - previous intolerance to statins * Obesity * Chronic obstructive sleep apnea -this will need long-term attention * Hypertension PLANS: * Continue insulin at 2 units if below 110 and 4 if above. will add SSI as sugars climb and PO intake increases. * Monitor H/H for further signs of bleeding. * Otherwise routine postop management * Continued attempts through the day to get him up and mobilized Subjective: still chest discomfort. no other complaints. Objective: Vital Signs Temp Pulse Resp BP Pulse Ox 36.6 C 88 20 114/69 94 07/14/18 16:00 07/14/18 21:27 07/14/18 16:00 07/14/18 21:27 07/14/18 16:00 Laboratory Results 07/14/18 05:00 07/14/18 05:00 07/13/18 07/14/18 07/15/18 05:59 05:59 05:59 Intake Total 3328 1250 1000 Output Total 1795 2610 825 Balance 1533 -1360 175 PT 15.6 SEC (12.0-15.0) H 07/14/18 05:00 INR 1.30 (0.83-1.16) H 07/14/18 05:00 - Physical Exam Constitutional: no apparent distress Eyes: PERRL Ears, Nose, Mouth, Throat: moist mucous membranes Cardiovascular: regular rate and rhythym Respiratory: no respiratory distress Gastrointestinal: normoactive bowel sounds Genitourinary: no bladder fullness Skin: warm Musculoskeletal: generalized weakness Neurologic: AAOx3 Psychiatric: interacting appropriately Lymph, Heme, Immunologic: no cervical LAD ICD10 Worksheet Patient Problems: Problems Problem Status Onset Acute blood loss anemia Acute Atrial fibrillation Acute Chest pain Acute S/P CABG x 3 Acute S/P left atrial appendage ligation Acute Status post circumferential ablation of pulmonary vein Acute History of coronary artery disease Acute
[2018-07-15] MEDS: INSULIN LISPRO 100 UNIT/ML SC SCH ×6 (02:15→20:13)
[2018-07-15] MEDS: traMADol 50 MG TAB PO PRN ×3 (02:46→18:20)
[2018-07-15] MEDS: ACETAMINOPHEN 325 MG TAB PO PRN ×3 (02:47→18:19)
[2018-07-15 04:57] LABS: INR 1.22 (0.83-1.16); PROTIME(PATIENT) 14.9 SEC (12.0-15.0)
--- NOTE | 2018-07-15 07:49 | SOAPPROG ---
SOAP Progress Note Assessment/Plan: Assessment: POD#4 Urgent CABGx3 (ARAUJO-LAD, PASCUAL-diag, LRA-PLC), Hawthorne-Maze IV, open harvest left radial artery, EVH RLE (not used); Mediastinal re-exploration for bleeding. Chest closed with alfredito. Sx progressive left sided CAD w patent PDA stents - s/p urgent CABGx3 complicated by coagulopathy necessitating take back exploration. PASCUAL bleeders identified, coagulopathy corrected, and hemostasis achieved. Extubated without incident. Secondary prevention with baby ASA, BB. Allergy to statins (memory issues). RA graft antispasm prophylaxis w CCB x 30 days. Previously on Plavix d/ t stents, however, completely revascularization w new grafts. Ischemic cardiomyopathy - Preop LVEF ~40% w RWMA. Improved LV systolic fx post revasc. No postop pressor support. Moderate volume overload well tolerated. Staggered intro of heart failure regimen as tolerated. Paroxysmal atrial fibrillation/chronic anticoagulation on Eliquis - s/p CM4. Postop rhythm sinus. AF prophylaxis with maintenance dose amio, CCB, and BB. Antithrombotic prophylaxis switch to Coumadin. INR goal of 2-3, duration as per Maze protocol. Careful anticoag in the setting of recent coagulopathy. Acute expected blood loss anemia with thrombocytopenia and coagulopathy - Exacerbated by incomplete washout of Plavix prior to surgery. Stable s/p 5u PRBC , 1u Plt and 1u cryo. VTE prophylaxis w SCDs. Platelet rebound today. DM2 - Poorly controlled by preop A1c of 8.5%. Postop hyperglycemia managed with insulin gtt. Transition to basal/bolus insulin per hospitalist. Dilated ascending aorta with mild AI - No surgical intervention deemed necessary. Surveillance per cards. Post-op delirium - POD3. Avoid narcotics when possible. Plan: Chest tube too much to pull Start low dose coumadin Inc KlorCon to 20 mg PO BID Recheck K tomorrow Cut TCPW today Patient requests SNF in [facility] - expect Monday/Monday Subjective: Doing well. Objective: Vital Signs Temp Pulse Resp BP Pulse Ox 36.5 C 76 17 106/50 L 97 07/15/18 00:00 07/15/18 04:00 07/15/18 04:00 07/15/18 04:00 07/15/18 04:00 Laboratory Results 07/15/18 04:35 07/15/18 04:35 07/14/18 07/15/18 07/16/18 05:59 05:59 05:59 Intake Total 1250 1500 Output Total 2610 1365 Balance -1360 135 PT 14.9 SEC (12.0-15.0) 07/15/18 04:35 INR 1.22 (0.83-1.16) H 07/15/18 04:35 - Physical Exam General Appearance: alert, no apparent distress Respiratory: decreased breath sounds (bases), other (blakes x 1 to bulb suction , serosang drainage) Cardiac/Chest: regular rate, rhythm, other (Sternal dressing CDI. Vwires intact. ) alfredito Abdomen: normal bowel sounds, non-tender, soft Skin: warm/dry Extremities: swelling (1+ gen), other (LR arteriotomy CDI. CSM intact. RLE venotomy CDI.) No new sensation or motor deficit in left hand. ICD10 Worksheet Patient Problems: Problems Problem Status Onset Acute blood loss anemia Acute Atrial fibrillation Acute Chest pain Acute S/P CABG x 3 Acute S/P left atrial appendage ligation Acute Status post circumferential ablation of pulmonary vein Acute History of coronary artery disease Acute
[2018-07-15] MEDS: FUROSEMIDE 40 MG TAB PO SCH ×2 (08:03→14:55)
[2018-07-15] MEDS: PANTOPRAZOLE SODIUM 40 MG TAB PO SCH (08:03)
[2018-07-15] MEDS: METOPROLOL TARTRATE 25 MG TAB PO SCH ×2 (08:03→20:12)
[2018-07-15] MEDS: ASPIRIN 81 MG CHEWABLE TAB PO SCH (08:03)
[2018-07-15] MEDS: SENNOSIDES/DOCUSATE SODIUM TAB PO SCH ×2 (08:03→20:12)
[2018-07-15] MEDS: amLODIPine BESYLATE 5 MG TAB PO SCH (08:04)
[2018-07-15] MEDS: POTASSIUM CL 10 MEQ TAB PO SCH ×2 (09:00→20:12)
[2018-07-15] MEDS ORDERED: D50W 25 GM/50 ML SYR IVP PRN (15:53)
--- NOTE | 2018-07-15 15:59 | HOSPPROG ---
Hospitalist Progress Note Assessment/Plan: 62 year old male with CAD status post CABG/Maze. Medicine consulted for management of his DM. DIAGNOSES: * Unstable angina pectoralis * Diffuse 3 vessel coronary artery disease * Status post CABG/Maze 07/11, with subsequent bleed from mammary artery graft, taken back to OR for repair * Post hemorrhagic anemia, status post transfusion of packed red blood cells * Chronic atrial fibrillation now status post Maze procedure in sinus rhythm * Diabetes mellitus- normally takes sliding scale of lantus. Since surgery has been taking a modified sliding scale with 2 units of lispro for BG 100-110, and 4 units above 110, every Q4. patient not happy getting woken up Q4 overnight. * Hypercholesterolemia LDL 115 - previous intolerance to statins * Obesity * Chronic obstructive sleep apnea -this will need long-term attention * Hypertension PLANS: * Changed today to standard SSI lispro, so he is not getting woken up every 4 hours at night. Depending on how his sugars are over the next day or so would add back low dose lantus. * Monitor H/H for further signs of bleeding. * Otherwise routine postop management per CT surgery * Continued attempts through the day to get him up and mobilized Subjective: wants claritin for a stuffy nose. eating well, pain well controlled. Objective: Vital Signs Temp Pulse Resp BP Pulse Ox 35 C L 82 20 111/70 96 07/15/18 12:00 07/15/18 12:00 07/15/18 12:00 07/15/18 12:00 07/15/18 12:00 Laboratory Results 07/15/18 04:35 07/15/18 04:35 07/14/18 07/15/18 07/16/18 05:59 05:59 05:59 Intake Total 1250 1500 500 Output Total 2610 1365 800 Balance -1360 135 -300 PT 14.9 SEC (12.0-15.0) 07/15/18 04:35 INR 1.22 (0.83-1.16) H 07/15/18 04:35 - Physical Exam Constitutional: no apparent distress, appears nourished, not in pain Eyes: PERRL, anicteric sclera, EOMI Ears, Nose, Mouth, Throat: moist mucous membranes, hearing normal, ears appear normal, no oral mucosal ulcers Cardiovascular: regular rate and rhythym, no murmur, rub, or gallop Respiratory: no respiratory distress, no rales or rhonchi, clear to auscultation Gastrointestinal: normoactive bowel sounds, soft, non-tender abdomen, no palpable masses Genitourinary: no bladder fullness, no bladder tenderness, no renal bruits Skin: no rashes or abrasions, no fluctuance, no induration Musculoskeletal: full muscle strength, no muscle tenderness, normal joint ROM Neurologic: AAOx3, sensation intact bilaterally Psychiatric: interacting appropriately, not anxious, not encephalopathic, thought process linear Lymph, Heme, Immunologic: no cervical LAD, no supraclavicular LAD ICD10 Worksheet Patient Problems: Problems Problem Status Onset Acute blood loss anemia Acute Atrial fibrillation Acute Chest pain Acute S/P CABG x 3 Acute S/P left atrial appendage ligation Acute Status post circumferential ablation of pulmonary vein Acute History of coronary artery disease Acute
[2018-07-15] MEDS ORDERED: WARFARIN SODIUM 1 MG TAB PO ONE (16:00)
[2018-07-15] MEDS: AMIODARONE HCL 200 MG TAB PO SCH (20:12)
[2018-07-16] MEDS: ACETAMINOPHEN 325 MG TAB PO PRN ×3 (02:46→17:57)
[2018-07-16] MEDS: traMADol 50 MG TAB PO PRN ×3 (02:46→17:56)
[2018-07-16 06:45] LABS: INR 1.19 (0.83-1.16); PROTIME(PATIENT) 14.6 SEC (12.0-15.0)
[2018-07-16] MEDS: INSULIN LISPRO 100 UNIT/ML SC SCH ×3 (07:59→17:51)
--- NOTE | 2018-07-16 08:01 | SOAPPROG ---
SOAP Progress Note Assessment/Plan: Assessment: POD#5 Urgent CABGx3 (ARAUJO-LAD, PASCUAL-diag, LRA-PLC), Hawthorne-Maze IV, open harvest left radial artery, EVH RLE (not used) POD#5 Mediastinal re-exploration for bleeding. Chest closed with alfredito. Sx progressive left sided CAD w patent PDA stents - s/p urgent CABGx3 complicated by coagulopathy necessitating take back exploration. PASCUAL bleeders identified, coagulopathy corrected, and hemostasis achieved. Extubated without incident. Secondary prevention with baby ASA and BB. Hypolipidemic deferred to cards as statin intoleranace (memory issues). RA graft antispasm prophylaxis w CCB x 30 days. Stent prophylaxis with Plavix no longer deemed necessary. Ischemic cardiomyopathy - Preop LVEF ~40% w RWMA. Improved LV systolic fx post revasc. No postop pressor support. Actively diuresing moderate volume overload. Staggered intro of heart failure regimen as tolerated. Paroxysmal atrial fibrillation/chronic anticoagulation on Eliquis - s/p Maze. Postop rhythm sinus. AF prophylaxis with maintenance dose amio, CCB, and beta kasey. Antithrombotic prophylaxis switch to Coumadin. INR goal of 2-3, duration as per Maze protocol. Acute expected blood loss anemia with thrombocytopenia and coagulopathy - Exacerbated by incomplete washout of Plavix prior to surgery. Stable s/p 5u PRBC , 1u Plt and 1u cryo. Platelet rebound noted. VTE prophylaxis w SCDs. Postop delirium - Resolved with med adjustment and supportive therapy. DM2 - Poorly controlled by preop A1c of 8.5%. Postop hyperglycemia managed with insulin gtt. Transition to basal/bolus insulin per hospitalist. Dilated ascending aorta with mild AI - No surgical intervention deemed necessary. Surveillance per cards. Plan: Keep pleural drain for at least one more shift. Cont Norvasc 2.5 mg daily. Cont amio 200 mg HS. Cont lasix 40 mg BID. Switch metoprolol tartrate to home dose of Toprol. Consider resume lisinopril tomorrow. Inc Coumadin to 5 mg today. Dispo - Anticipate SNF in [facility] next 1-2 days 07/16/18 08:01 Subjective: Feels well. Improving stamina, mobility, and appetite. Satisfactory analgesia with tramadol. Requests claritin for nasal stuffiness. Hopeful for return to [place] after released from SNF. Objective: Vital Signs Temp Pulse Resp BP Pulse Ox 36.7 C 88 17 139/78 H 99 07/16/18 07:44 07/16/18 07:44 07/16/18 07:44 07/16/18 07:44 07/16/18 07:44 Laboratory Results 07/15/18 04:35 07/16/18 06:15 07/15/18 07/16/18 07/17/18 05:59 05:59 05:59 Intake Total 1500 1750 Output Total 1365 2170 Balance 135 -420 PT 14.6 SEC (12.0-15.0) 07/16/18 06:15 INR 1.19 (0.83-1.16) H 07/16/18 06:15 Holding SR. Adequate BP control. Adequate fluid balance. Now within 5 kg baseline wt. Borderline suppl O2 req. CTOP approaching removal criteria. 110 ml last shift. INR yet to rise. - Pending Discharge Pending Discharge Within 48 Hours: Yes Pending Discharge Date: 07/18/18 Pending Discharge Time: 11:00 Physical Exam - Physical Exam General Appearance: alert, no apparent distress Respiratory: lungs clear, other Cardiac/Chest: regular rate, rhythm, other (Sternotomy and LUE radial arteriotomy CDI) Abdomen: non-tender, soft Skin: warm/dry Extremities: swelling (1+ dependent LLE, 2+ dependent donor leg), other (RLE venotomy CDI) ICD10 Worksheet Patient Problems: Problems Problem Status Onset Acute blood loss anemia Acute Atrial fibrillation Acute Chest pain Acute S/P CABG x 3 Acute S/P left atrial appendage ligation Acute Status post circumferential ablation of pulmonary vein Acute History of coronary artery disease Acute
[2018-07-16] MEDS: ASPIRIN 81 MG CHEWABLE TAB PO SCH (08:25)
[2018-07-16] MEDS: FUROSEMIDE 40 MG TAB PO SCH ×2 (08:25→15:09)
[2018-07-16] MEDS: amLODIPine BESYLATE 5 MG TAB PO SCH (08:25)
[2018-07-16] MEDS: PANTOPRAZOLE SODIUM 40 MG TAB PO SCH (08:26)
[2018-07-16] MEDS: SENNOSIDES/DOCUSATE SODIUM TAB PO SCH ×2 (08:26→19:15)
[2018-07-16] MEDS: POTASSIUM CL 10 MEQ TAB PO SCH ×2 (08:26→19:15)
[2018-07-16] MEDS ORDERED: POTASSIUM CL 20 MEQ TAB PO ONE (09:00)
[2018-07-16] MEDS: METOPROLOL SUCCINATE XR 50 MG TAB PO SCH (09:25)
[2018-07-16] MEDS: CETIRIZINE 10 MG TAB PO SCH (10:55)
--- NOTE | 2018-07-16 12:03 | HOSPPROG ---
Hospitalist Progress Note Assessment/Plan: 62 year old male with CAD status post CABG/Maze. dm: a1c 8.5 start lantus at 6 given > goal AM blood sugars ss as ordered cad: s/p cabg AF: s/p maze amiodarone volume overload: diuresing proph: warfarin started dispo: per CT surgery Subjective: case d/w jeronimo montanez, CT surgery PA. AM bllod sugars 120 and higher Objective: Vital Signs Temp Pulse Resp BP Pulse Ox 36.8 C 88 18 115/61 96 07/16/18 11:07 07/16/18 11:07 07/16/18 11:07 07/16/18 11:07 07/16/18 11:07 Laboratory Results 07/15/18 04:35 07/16/18 06:15 07/15/18 07/16/18 07/17/18 05:59 05:59 05:59 Intake Total 1500 1750 450 Output Total 1365 2170 790 Balance 135 -420 -340 PT 14.6 SEC (12.0-15.0) 07/16/18 06:15 INR 1.19 (0.83-1.16) H 07/16/18 06:15 - Physical Exam Constitutional: no apparent distress, appears nourished Eyes: PERRL, anicteric sclera Ears, Nose, Mouth, Throat: moist mucous membranes, hearing normal Cardiovascular: regular rate and rhythym, no murmur, rub, or gallop Respiratory: no respiratory distress, no rales or rhonchi Gastrointestinal: normoactive bowel sounds, soft, non-tender abdomen Genitourinary: no bladder fullness, No thomas in urethra Skin: warm, normal color Musculoskeletal: full muscle strength ICD10 Worksheet Patient Problems: Problems Problem Status Onset Acute blood loss anemia Acute Atrial fibrillation Acute Chest pain Acute S/P CABG x 3 Acute S/P left atrial appendage ligation Acute Status post circumferential ablation of pulmonary vein Acute History of coronary artery disease Acute
--- NOTE | 2018-07-16 12:14 | ASMTCMCOM ---
CM Note CM Note Notes: Pts case discussed in tx rounds. According to Macey Thomas's note, pt will be ready to d/c in the next day or two. [facility] in [place], [place] is able to accept. CM informed them to start getting auth. CM notified pts Rosi and pt about the acceptance. Rosi will either go tour today or tomorrow. CM to follow. Plan: [facility] SN[facility] Date Signed: 07/16/2018 12:13 PM Electronically Signed By:CHRIS Olsen
[2018-07-16] MEDS: ERGOCALCIFEROL 50,000 I.UNIT CAP PO SCH (15:09)
[2018-07-16] MEDS ORDERED: WARFARIN SODIUM 5 MG TAB PO ONE (16:00)
[2018-07-16] MEDS: INSULIN GLARGINE 100 UNITS/ML UNIT SC SCH (17:51)
[2018-07-16] MEDS: AMIODARONE HCL 200 MG TAB PO SCH (19:15)
[2018-07-17] MEDS: traMADol 50 MG TAB PO PRN ×3 (04:36→17:58)
[2018-07-17] MEDS: ACETAMINOPHEN 325 MG TAB PO PRN ×3 (04:39→15:21)
[2018-07-17 05:15] LABS: INR 1.23 (0.83-1.16)
--- NOTE | 2018-07-17 07:11 | SOAPPROG ---
SOAP Progress Note Assessment/Plan: Assessment: POD#6 Urgent CABGx3 (ARAUJO-LAD, PASCUAL-diag, LRA-PLC), Hawthorne-Maze IV, open harvest left radial artery, EVH RLE (not used) POD#5 Mediastinal re-exploration for bleeding. Chest closed with alfredito. Sx progressive left sided CAD w patent PDA stents - s/p urgent CABGx3 complicated by coagulopathy necessitating take back exploration. PASCUAL bleeders identified, coagulopathy corrected, and hemostasis achieved. Extubated without incident. Secondary prevention with baby ASA and BB. Hypolipidemic deferred to cards as statin intoleranace (memory issues). RA graft antispasm prophylaxis w CCB x 30 days. Stent prophylaxis with Plavix no longer deemed necessary. Ischemic cardiomyopathy - Preop LVEF ~40% w RWMA. Improved LV systolic fx post revasc. No postop pressor support. Actively diuresing moderate volume overload. Staggered intro of heart failure regimen as tolerated. Paroxysmal atrial fibrillation/chronic anticoagulation on Eliquis - s/p Maze. Postop rhythm sinus. AF prophylaxis with maintenance dose amio, CCB, and beta kasey. Antithrombotic prophylaxis switch to Coumadin. INR goal of 2-3, duration as per Maze protocol. Acute expected blood loss anemia with thrombocytopenia and coagulopathy - Exacerbated by incomplete washout of Plavix prior to surgery. Stable s/p 5u PRBC , 1u Plt and 1u cryo. Platelet rebound noted. VTE prophylaxis w SCDs. Postop delirium - Resolved with med adjustment and supportive therapy. DM2 - Poorly controlled by preop A1c of 8.5%. Postop hyperglycemia managed with insulin gtt. Transition to basal/bolus insulin per hospitalist. Dilated ascending aorta with mild AI - No surgical intervention deemed necessary. Surveillance per cards. Plan: Remove pleural drain later today. Cont Norvasc 2.5 mg daily. Cont amio 200 mg HS. Cont lasix 40 mg BID. Cont Toprol XL 50 mg daily. Consider restart lisinopril at 5 mg (1/2 home dose) tonight. Cont Coumadin 5 mg today. Dispo - SNF ([facility] in [place]) tomorrow insurance auth. 07/17/18 07:08 Subjective: Doing ok. No insurance coverage for SNFs in [place], so to visit potential site in [place] today. Nervous about tube removal. Objective: Vital Signs Temp Pulse Resp BP Pulse Ox 36.4 C 85 19 146/78 H 98 07/17/18 04:00 07/17/18 04:00 07/17/18 04:00 07/17/18 04:00 07/17/18 04:00 Laboratory Results 07/17/18 04:50 07/17/18 04:50 07/16/18 07/17/18 07/18/18 05:59 05:59 05:59 Intake Total 1750 1050 Output Total 2170 1740 Balance -420 -690 PT 15.0 SEC (12.0-15.0) 07/17/18 04:50 INR 1.23 (0.83-1.16) H 07/17/18 04:50 Stable HR and rhythm. Uptrending SBPs. Min suppl O2 req. Adequate fluid balance. CTOP down to 100 ml last shift. Labs as expected. Physical Exam - Physical Exam General Appearance: alert, no apparent distress Respiratory: crackles (rt base), other Cardiac/Chest: regular rate, rhythm, other (Sternotomy, LUE arteriotomy and RLE venotomy CDI) Abdomen: non-tender, soft Skin: warm/dry Extremities: swelling (1+ dependent) ICD10 Worksheet Patient Problems: Problems Problem Status Onset Acute blood loss anemia Acute Atrial fibrillation Acute Chest pain Acute S/P CABG x 3 Acute S/P left atrial appendage ligation Acute Status post circumferential ablation of pulmonary vein Acute History of coronary artery disease Acute
[2018-07-17] MEDS: INSULIN LISPRO 100 UNIT/ML SC SCH ×3 (08:42→17:59)
[2018-07-17] MEDS: amLODIPine BESYLATE 5 MG TAB PO SCH (08:43)
[2018-07-17] MEDS: INSULIN GLARGINE 100 UNITS/ML UNIT SC SCH (08:44)
[2018-07-17] MEDS: ASPIRIN 81 MG CHEWABLE TAB PO SCH (08:44)
[2018-07-17] MEDS: FUROSEMIDE 40 MG TAB PO SCH ×2 (08:44→15:22)
[2018-07-17] MEDS: CETIRIZINE 10 MG TAB PO SCH (08:44)
[2018-07-17] MEDS: METOPROLOL SUCCINATE XR 50 MG TAB PO SCH (08:46)
[2018-07-17] MEDS: SENNOSIDES/DOCUSATE SODIUM TAB PO SCH (08:47)
[2018-07-17] MEDS: POTASSIUM CL 10 MEQ TAB PO SCH ×2 (08:47→20:40)
[2018-07-17] MEDS: PANTOPRAZOLE SODIUM 40 MG TAB PO SCH (08:47)
[2018-07-17] MEDS ORDERED: LISINOPRIL 5 MG TAB PO SCH (09:00)
[2018-07-17] MEDS ORDERED: fentaNYL 100 MCG/2 ML INJ IVP ONE (12:09)
--- NOTE | 2018-07-17 12:13 | ASMTCMCOM ---
CM Note CM Note Notes: Pts case discussed in tx rounds. Turns out that [facility] could not get auth because [employer] started getting auth without speaking to CM or pt before doing so. CM spoke to Kaylene at [facility] (P#: [phone]) and Kaylene reports that [facility] is not in network but [facility] is. CM had [employer] release auth and had [facility] get auth. [facility] got auth today. Pt is having chest tube pulled this afternoon. CM discussed case w/ Macey Thomas. Anticipate d/c for tomorrow. Pt and is agreeable to going with [facility] since it is in network. CM to follow. Plan: [facility] Date Signed: 07/17/2018 12:13 PM Electronically Signed By:CHRIS Olsen
[2018-07-17] MEDS ORDERED: WARFARIN SODIUM 5 MG TAB PO ONE (16:00)
--- NOTE | 2018-07-17 16:13 | HOSPPROG ---
Hospitalist Progress Note Assessment/Plan: 62 year old male with CAD status post CABG/Maze. dm: a1c 8.5 currently on lantus 6 daily and SSI with relatively good control home dose was much higher than what he has been requiring here and likely does not need to dc on those higher doses though perhaps he has not been eating as much as usual cad: s/p cabg AF: s/p maze amiodarone volume overload: diuresing proph: warfarin started dispo: per CT surgery Subjective: patient plans to move back to [place] after discharge, lots of concerns around insurance and logisitical things like that, pain relatively well controlled Objective: Vital Signs Temp Pulse Resp BP Pulse Ox 36.6 C 81 13 124/77 H 96 07/17/18 14:58 07/17/18 14:58 07/17/18 14:58 07/17/18 14:58 07/17/18 14:58 Laboratory Results 07/17/18 04:50 07/17/18 04:50 07/16/18 07/17/18 07/18/18 05:59 05:59 05:59 Intake Total 1750 1050 Output Total 2170 1840 Balance -420 -790 PT 15.0 SEC (12.0-15.0) 07/17/18 04:50 INR 1.23 (0.83-1.16) H 07/17/18 04:50 - Time Spent With Patient Time Spent with Patient: greater than 35 minutes Time Spent with Patient: Greater than 35 minutes spent on this patients care, greater than 50% of time spent counseling, educating, and coordinating care regarding the above mentioned plan. - Physical Exam Constitutional: no apparent distress, obese Eyes: PERRL Ears, Nose, Mouth, Throat: moist mucous membranes Cardiovascular: regular rate and rhythym, no murmur, rub, or gallop, No edema Respiratory: no respiratory distress, no rales or rhonchi Gastrointestinal: normoactive bowel sounds, soft, non-tender abdomen Skin: warm, normal color Musculoskeletal: No asymmetric calves Neurologic: AAOx3 Psychiatric: interacting appropriately ICD10 Worksheet Patient Problems: Problems Problem Status Onset Acute blood loss anemia Acute S/P CABG x 3 Acute S/P left atrial appendage ligation Acute Status post circumferential ablation of pulmonary vein Acute Chest pain Acute History of coronary artery disease Acute Atrial fibrillation Acute
[2018-07-17] MEDS: AMIODARONE HCL 200 MG TAB PO SCH (20:40)
[2018-07-17] MEDS ORDERED: SENNOSIDES/DOCUSATE SODIUM TAB PO PRN (21:00)
[2018-07-18] MEDS: ACETAMINOPHEN 325 MG TAB PO PRN ×2 (02:15→12:43)
[2018-07-18] MEDS: traMADol 50 MG TAB PO PRN ×2 (02:15→08:49)
[2018-07-18 06:04] LABS: INR 1.21 (0.83-1.16); PROTIME(PATIENT) 14.8 SEC (12.0-15.0)
--- NOTE | 2018-07-18 07:37 | SOAPPROG ---
SOAP Progress Note Assessment/Plan: Assessment: POD#7 Urgent CABGx3 (ARAUJO-LAD, PASCUAL-diag, LRA-PLC), Hawthorne-Maze IV, open harvest left radial artery, EVH RLE (not used); Mediastinal re-exploration for bleeding. Chest closed with alfredito. Sx progressive left sided CAD w patent PDA stents - s/p urgent CABGx3 complicated by coagulopathy necessitating take back exploration. PASCUAL bleeders identified, coagulopathy corrected, and hemostasis achieved. Extubated without incident. Secondary prevention with baby ASA and BB. Hypolipidemic deferred to cards as statin intoleranace (memory issues). RA graft antispasm prophylaxis w CCB x 30 days. Stent prophylaxis with Plavix no longer deemed necessary. Ischemic cardiomyopathy - Preop LVEF ~40% w RWMA. Improved LV systolic fx post revasc. No postop pressor support. Actively diuresing moderate volume overload. Staggered intro of heart failure regimen as tolerated. Paroxysmal atrial fibrillation/chronic anticoagulation on Eliquis - s/p Maze. Postop rhythm sinus. AF prophylaxis with maintenance dose amio, CCB, and beta kasey. Antithrombotic prophylaxis switch to Coumadin. INR goal of 2-3, duration as per Maze protocol. Acute expected blood loss anemia with thrombocytopenia and coagulopathy - Exacerbated by incomplete washout of Plavix prior to surgery. Stable s/p 5u PRBC , 1u Plt and 1u cryo. Platelet rebound noted. VTE prophylaxis w SCDs. Postop delirium - Resolved with med adjustment and supportive therapy. DM2 - Poorly controlled by preop A1c of 8.5%. Postop hyperglycemia managed with insulin gtt. Transition to basal/bolus insulin per hospitalist. Dilated ascending aorta with mild AI - No surgical intervention deemed necessary. Surveillance per cards. Plan: Continue Coumadin 5 Change diuresis to once daily SNF today - [facility] Subjective: Ready for discharge. Objective: Vital Signs Temp Pulse Resp BP Pulse Ox 36.6 C 81 20 95/51 L 96 07/18/18 04:00 07/18/18 04:00 07/18/18 04:00 07/18/18 04:00 07/18/18 04:00 Laboratory Results 07/17/18 04:50 07/18/18 05:30 07/17/18 07/18/18 07/19/18 05:59 05:59 05:59 Intake Total 1050 750 Output Total 1840 200 Balance -790 550 PT 14.8 SEC (12.0-15.0) 07/18/18 05:30 INR 1.21 (0.83-1.16) H 07/18/18 05:30 - Physical Exam General Appearance: alert, no apparent distress Respiratory: crackles (rt base), other Cardiac/Chest: regular rate, rhythm, other (Sternotomy, LUE arteriotomy and RLE venotomy CDI) Abdomen: non-tender, soft Skin: warm/dry Extremities: swelling (1+ dependent) ICD10 Worksheet Patient Problems: Problems Problem Status Onset Acute blood loss anemia Acute Atrial fibrillation Acute Chest pain Acute S/P CABG x 3 Acute S/P left atrial appendage ligation Acute Status post circumferential ablation of pulmonary vein Acute History of coronary artery disease Acute
[2018-07-18] MEDS: INSULIN LISPRO 100 UNIT/ML SC SCH ×2 (08:46→12:30)
[2018-07-18] MEDS: amLODIPine BESYLATE 5 MG TAB PO SCH (08:47)
[2018-07-18] MEDS: CETIRIZINE 10 MG TAB PO SCH (08:48)
[2018-07-18] MEDS: FUROSEMIDE 40 MG TAB PO SCH (08:48)
[2018-07-18] MEDS: ASPIRIN 81 MG CHEWABLE TAB PO SCH (08:48)
[2018-07-18] MEDS: PANTOPRAZOLE SODIUM 40 MG TAB PO SCH (08:49)
[2018-07-18] MEDS: POTASSIUM CL 10 MEQ TAB PO SCH (08:49)
[2018-07-18] MEDS: METOPROLOL SUCCINATE XR 50 MG TAB PO SCH (08:49)
--- NOTE | 2018-07-18 08:56 | HOSPPROG ---
Hospitalist Progress Note Assessment/Plan: 62 year old male with CAD status post CABG/Maze. Medicine consulted for diabetes management. #diabetes: a1c 8.5 - would continue lantus 6 units daily and current sliding scale (2 units lispro for BG 150-200, 4 units 201-250, 6 units 251-300, 8 units 301-350) with ACHS glucose checks at rehab - will likely need to increase basal and bolus coverage as PO intake increases (he was on higher doses at home prior to surgery) cad: s/p cabg AF: s/p maze amiodarone volume overload: diuresing proph: warfarin started dispo: per CT surgery Subjective: No new issues. Wants to make sure his new medication list gets transferred to his rehab facility. He is comfortable with new insulin plan. Objective: Vital Signs Temp Pulse Resp BP Pulse Ox 36.8 C 82 18 140/79 H 99 07/18/18 07:34 07/18/18 07:34 07/18/18 07:34 07/18/18 07:34 07/18/18 07:34 Laboratory Results 07/17/18 04:50 07/18/18 05:30 07/17/18 07/18/18 07/19/18 05:59 05:59 05:59 Intake Total 1050 750 236 Output Total 1840 200 Balance -790 550 236 PT 14.8 SEC (12.0-15.0) 07/18/18 05:30 INR 1.21 (0.83-1.16) H 07/18/18 05:30 - Physical Exam Constitutional: no apparent distress, appears nourished, not in pain Eyes: PERRL, anicteric sclera, EOMI Ears, Nose, Mouth, Throat: moist mucous membranes, hearing normal, ears appear normal, no oral mucosal ulcers Cardiovascular: regular rate and rhythym, no murmur, rub, or gallop, No edema Respiratory: no respiratory distress, no rales or rhonchi, clear to auscultation Gastrointestinal: normoactive bowel sounds, soft, non-tender abdomen, no palpable masses Genitourinary: no bladder fullness, no bladder tenderness, no renal bruits Skin: no rashes or abrasions, no fluctuance, no induration, other (sternal incision c/d/i) Musculoskeletal: full muscle strength, no muscle tenderness, normal joint ROM Neurologic: AAOx3 Psychiatric: interacting appropriately ICD10 Worksheet Patient Problems: Problems Problem Status Onset Acute blood loss anemia Acute Atrial fibrillation Acute Chest pain Acute S/P CABG x 3 Acute S/P left atrial appendage ligation Acute Status post circumferential ablation of pulmonary vein Acute History of coronary artery disease Acute
[2018-07-18] MEDS: INSULIN GLARGINE 100 UNITS/ML UNIT SC SCH (09:04)
--- NOTE | 2018-07-18 09:48 | PDDCSUM ---
Discharge Summary Discharge Summary: DATE OF ADMISSION: 07/06/18 DATE OF DISCHARGE: 07/18/18 DISPOSITION: [facility] ACTIVITY: Instructed on sternal precautions, activity restrictions, and problems to call [facility]. ADMISSION DIAGNOSES: Unstable angina pectoris with severe diffuse 3-vessel disease Paroxysmal atrial fibrillation/early persistent Ischemic cardiomyopathy History of PCI Obesity Poorly controlled type 2 diabetes mellitus, A1c 8.5% DISCHARGE DIAGNOSES: As above, plus S/p CABGx3, Hawthorne-Maze IV Acute blood loss anemia with thrombocytopenia and coagulopathy Transient postoperative delirium Postoperative respiratory failure PROCEDURES PERFORMED: 07/11/18 ([facility]) CABGx3 (ARAUJO-LAD, PASCUAL-diagonal, left radial-posterior lateral circ), left radial artery harvest site, Hawthorne-Maze IV biatrial sensing and testing 07/11/18 ([facility]) Mediastinal reexploration with control of bleeding HISTORY OF PRESENT ILLNESS: This is a pleasant 62M with a history of prior cardiac stents on plavix, PAF on Eliquis, and T2DM who presented with progressive dyspnea on exertion and severe chest pressure. He underwent diagnostic left heart catheterization demonstrated severe 3-vessel coronary artery disease. He was referred for urgent revascularization. HOSPITAL COURSE BY PROBLEM LIST: Sx progressive left sided CAD w patent PDA stents - s/p urgent CABGx3 complicated by coagulopathy necessitating take back exploration. PASCUAL bleeders identified, coagulopathy corrected, and hemostasis achieved. Extubated without incident. Secondary prevention with baby ASA and BB. Hypolipidemic deferred to cards as statin intoleranace (memory issues). RA graft antispasm prophylaxis w CCB x 30 days. Stent prophylaxis with Plavix no longer deemed necessary/worth the risk with concomitant warfarin therapy. Ischemic cardiomyopathy - Preop LVEF ~40% w RWMA. Improved LV systolic fx post revasc. No postop pressor support. Actively diuresed moderate volume overload. Staggered intro of heart failure regimen as tolerated. Paroxysmal atrial fibrillation/chronic anticoagulation on Eliquis - s/p Maze. Postop rhythm sinus. AF prophylaxis with maintenance dose amio, CCB, and beta kasey. Antithrombotic prophylaxis switch to Coumadin. INR goal of 2-3, duration as per Maze protocol. Acute expected blood loss anemia with thrombocytopenia and coagulopathy - Exacerbated by incomplete washout of Plavix prior to surgery. Stable s/p 5u PRBC , 1u Plt and 1u cryo. Platelet rebound noted. VTE prophylaxis w SCDs. Postop delirium - Transient. Resolved with med adjustment and supportive therapy. DM2 - Poorly controlled by preop A1c of 8.5%. Postop hyperglycemia managed with insulin gtt. Continue lantus 6 units daily and current sliding scale (2 units lispro for BG 150-200, 4 units 201-250, 6 units 251-300, 8 units 301-350) with ACHS glucose checks at rehab. He will likely need to increase basal and bolus coverage as PO intake increases (he was on higher doses at home prior to surgery ). Dilated ascending aorta with mild AI - No surgical intervention deemed necessary. Surveillance per cards. PERTINENT DISCHARGE CLINICAL INFORMATION: Sternotomy w alfredito CDI Left forearm with ecchymosis, no sensation or motor loss EVH sites CDI HR 79 BP 118/51 SpO2 92% RA preop wt 128 kg, discharge wt 132 kg WBC 8.4 Hgb 9.3 Hct 27.6 Plt 147 Na 134 K 3.7 Cr 0.7 INR 1.21 CONSULTANTS: [facility], Cardiology, [facility], Hospital [facility] MEDICATIONS ON ADMISSION: Tramadol 50 mg PO BID Lisinopril 10 mg PO daily Plavix 75 mg PO daily Coreg 3.125 mg PO BID Lasix 20 mg PO BID Klor-Con 20 mEq PO daily Toprol 50 mg PO daily Eliquis 5 mg PO BID Lispro/Lantus Ergocalciferol ALLERGIES/SENSITIVITIES: statins (memory lapses) DISCHARGE MEDICATIONS: CONTINUE these medications: Nitrostat PRN Toprol 50 mg PO daily Ergocalciferol STOP these medications: Tramadol 50 mg PO BID (frequency changed) Lisinopril 10 mg PO daily Coreg 3.125 mg PO BID Plavix 75 mg PO daily Eliquis 5 mg PO BID Lispro/Lantus (dose adjusted) NEW medications: Tylenol PRN Amiodarone 200 mg PO HS until 08/10/18 Norvasc 2.5 mg PO daily until 08/10/18 Aspirin 81 mg PO daily Zyrtec 10 mg PO daily Lasix 40 mg PO daily Klor-Con 20 mg PO daily Lispro SSI/Lantus 6 units SC daily Warfarin 5 mg PO daily for goal INR 2-3 Tramadol 50 mg PO q 6 hours PRN FOLLOW UP APPOINTMENTS: CV surgery with Dr. Pierce at [facility] on 07/31/18 11:30AM. Cardiology - He will need to find provider (as well as outpatient cardiac rehab ) in home [facility]. Coumadin clinic, as directed PCP, as directed FOLLOW UP TESTING: CXR prior to surgical appointment. INR daily at SNF until goal 2-3, then every other day. Patient was subtherapeutic (1.21) at discharge.
--- NOTE | 2018-07-18 10:12 | PDIAF ---
- Diagnosis Diagnosis: CAD s/p urgent CABGx4 and Hawthorne-Maze IV Code Status: Full Code - Medication Management Additional Medication Instructions: Last dose of Norvasc (arterial spasm prophylaxis) and Amiodarone (atrial fibrillation prophylaxis) on 08/10/18. Continue lantus 6 units daily and sliding scale with ACHS glucose checks. - 2 units lispro for BG 150-200. - 4 units 201-250. - 6 units 251-300. - 8 units 301-350. Likely need to increase basal and bolus coverage as PO intake increases (he was on higher doses at home prior to surgery). Discharge Medications: electronically signed and located in the Home Medication List. PICC Care - Routine: N/A - Orders Services needed: Registered Nurse, Certified Filter Worker, Physical Therapy, Occupational Therapy Isolation Type: None Diet Recommendation: cardiac -low fat low salt Diet Texture: Regular Texture Diet, Thin Liquids, Meds Whole w/Liquids Weigh Patient: daily Mims: Not applicable Date to Remove Sutures/Donald: 07/21/18 (sternotomy ) Additional Instructions: CARDIAC SURGERY DISCHARGE INSTRUCTIONS Cardiac Rehabilitation Call [facility] cardiac rehab to enroll in phase 2 classes once released from shelter facility. Target oxygen saturation > 89%. Adjustments per cardiac rehab. Activity Restrictions Sternal precautions x 4 weeks. Avoid lifting > 10lbs with an outstretched arm. Avoid push/pull activities. No driving for 2 weeks or until cleared by surgery. Avoid prolonged standing or dangling. Elevate legs at rest. Wound Care Cleanse wounds once daily with soap and water. Avoid underwater immersion (pool, hot tub, bath) until scabs off. It is okay to leave all wounds open to air. Avoid creams or ointments until scabs off. Please log daily vital signs and bring to your next clinic visit Daily weight Resting heart rate over 1 minute Blood pressure Laboratory results (if drawn) When to Call [facility] Weekly gain > 5lbs or worsening leg swelling. Resting heart rate <60 or >120. Systolic blood pressure consistently <90 or >160. Please obtain a chest xray prior to surgical appointment. Use requisition form attached to appointment card. Chest x-rays don't require an appointment. Go to the Emergency Room entrance at the [facility] location. Sign in at the computer kiosk in the entryway. You will be given a number & may sit in the waiting area until called. You will be registered and directed to Imaging on the 1st floor. This process can take up to an hour. Please allow at least 30 min before your appt to get x-ray taken. Additional Information You may use [id number] medications for iron supplementation, bowel function or pain. You may use Tylenol 500-650 mg with meals and before bed. Max daily dose of Tylenol 3000 mg. Avoid nonsteroidal anti-inflammatories (ie. Ibuprofen, advil, motrin, aleve) x 3 months for interference with beneficial effects of aspirin on graft flow. - Labs/Radiology PT/INR Date: 07/19/18 (daily until INR 2-3, then every other day) Imaging Orders: CXR prior to Dr. Pierce appointment Call or Fax Lab and Imaging Results to: [facility] attn: Kenia Silverio - Follow Up Care Current Providers and Referrals: Jimmy Braswell MD [Primary Care Provider] - As per Instructions Abdi Pierce DO [Doctor of Osteopathy] - 07/31/18 11:30 am Jesús Massey MD [Medical Doctor] - follow up as scheduled
--- NOTE | 2018-07-18 10:55 | ASMTLACE ---
LACE Length of stay for Answers: 7-13 days current admission Acuity / Level of Answers: Yes Care: Did the patient have an inpatient admission? Comorbidities - select Answers: Coronary Artery Disease all that apply Diabetes (uncontrolled or controlled) Opioid dependence / Chronic pain Previous myocardial infarction Other Notes: HLD; AFib # of Emergency department Answers: 1-2 visits in the last 6 months Score: 18 Date Signed: 07/18/2018 10:54 AM Electronically Signed By:CHRIS Olsen
--- NOTE | 2018-07-18 10:59 | ASDISCHSUM ---
Discharge Information Plan Status:SNF Medically Cleared to Leave:07/18/2018 Discharge Date:07/18/2018 CM D/C Disposition: ADT D/C Disposition:Fdc Facility Projected Discharge Date:07/18/2018 11:00 AM Transportation at D/C: Discharge Delay Reason: Follow-Up Date:07/18/2018 11:00 AM Discharge Slot: Final Diagnosis: Placement Information Referral Type:*Group Home/SNF Referral ID:[id number] Provider Name:[facility] Address 1:[address] Address 2: Fax Number: City:[place] Selection Factors: State:[place] Patient Contact Information Contact Name:MAXGERMANIABRAXTON Relationship: Address:[address] Work Phone: City:[place] Alternate Phone: State/Zip Code:[place] [address] Email: Financial Information Financial Class:[employer] Primary Plan Desc:[facility] LOC[facility] Primary Plan Number:[id number] Secondary Plan Desc: Secondary Plan Number: Assessment Information LACE LACE Length of stay for Answers: 7-13 days current admission Acuity / Level of Answers: Yes Care: Did the patient have an inpatient admission? Comorbidities - select Answers: Coronary Artery Disease all that apply Diabetes (uncontrolled or controlled) Opioid dependence / Chronic pain Previous myocardial infarction Other Notes: HLD; AFib # of Emergency department Answers: 1-2 visits in the last 6 months Score: 18 Date Signed: 07/18/2018 10:54 AM Electronically Signed By:CHRIS Olsen [facility] CM Progress Note CM Note CM Note Notes: 07/07/2018 Case Management Note Pt admitted for chest pain and afib. Cath planned for tomorrow. There are no therapy evals ordered today. Social: pt is and employed. Independent in ADL's prior to admission. Case Management d/c poc: to be determined. Case Management to follow. Date Signed: 07/07/2018 03:16 PM Electronically Signed By:Josephine Tucker RN [facility] CM Progress Note CM Note CM Note Notes: Pt is scheduled for CABG Tuesday 07/11. CM to follow. Discharge needs TBD at this point. Plan: TBD Date Signed: 07/10/2018 09:23 AM Electronically Signed By:CHRIS Aaron [facility] CM Progress Note CM Note CM Note Notes: Patient is POD #1 CABG x 3, extubated and doing well. Therapies have been ordered. Case Management will follow for discharge planning. Date Signed: 07/12/2018 11:12 AM Electronically Signed By:Jen Read RN [facility] CM Progress Note CM Note CM Note Notes: Therapies and MD recommending SNF. Patient's will be staying in [place] and has requested a facility near there. I have sent out a few referrals, but we will likely have to wait until Monday, 07/16 because of insurance authorization. Case Management will follow. Current CM discharge plan: SNF, location tBD Date Signed: 07/14/2018 01:25 PM Electronically Signed By:Jen Read RN [facility] CM Progress Note CM Note CM Note Notes: Pts case discussed in tx rounds. According to Macey Thomas's note, pt will be ready to d/c in the next day or two. [facility] in [place], [place] is able to accept. CM informed them to start getting auth. CM notified pts Rosi and pt about the acceptance. Rosi will either go tour today or tomorrow. CM to follow. Plan: [facility] Date Signed: 07/16/2018 12:13 PM Electronically Signed By:CHRIS Olsen [facility] CM Progress Note CM Note CM Note Notes: Pts case discussed in tx rounds. Turns out that [facility] could not get auth because [employer] started getting auth without speaking to CM or pt before doing so. CM spoke to Kaylene at [facility] (P#: [phone]) and Kaylene reports that [employer] is not in network but [facility] is. CM had [employer] release auth and had [place] get auth. [facility] got auth today. Pt is having chest tube pulled this afternoon. CM discussed case w/ Macey Thomas. Anticipate d/c for tomorrow. Pt and is agreeable to going with [facility] since it is in network. CM to follow. Plan: [facility] Date Signed: 07/17/2018 12:13 PM Electronically Signed By:CHRIS Olsen Case Management Discharge Plan Note Case Management Discharge Discharge Order Complete? Answers: Yes Patient to Obtain Answers: Other Notes: [facility] Medications Transportation Arranged Answers: Other Notes: [employer] [employer] w/c EMTALA Complete Answers: No Case Management Transport Answers: No Form Complete Faxed Final Orders Answers: Yes Agency/Facility Transfer Answers: Yes Report Printed & Faxed to Receiving Agency Family Notified Answers: Yes Discharge Comments Notes: Pts case discussed w/ VICKI Edward and w/ Dr. Coe. Pt is being d/c'd today to [facility]. DC orders sent along w/ non triggering pasalen. CM spoke to Kari Bar and she set up transportation through [employer]. Pt will d/c in a wheelchair. JADA Kruger will call to give report. Rosi has been notified of the d/c. CM available for changes. Plan: [facility] Intervention Information
[2018-07-18] MEDS ORDERED: WARFARIN SODIUM 5 MG TAB PO ONE (16:00)
[2018-07-18 16:35] VITALS: BP 125/68
[2018-07-19] MEDS ORDERED: POTASSIUM CL 10 MEQ TAB PO SCH (09:00)
[2018-07-19] MEDS ORDERED: FUROSEMIDE 40 MG TAB PO SCH (09:00)
== END 2018-07-18 16:55 | DRG 233 ==
LOC: F2W 15:30 → OBSVTOIN 07-08 18:25 → F2N 07-11 07:18 → F2W 07-15 17:30
PROVIDERS: ADMIT Thoracic Surgery (Cardiothoracic Vascular Surgery); ATTEND Thoracic Surgery (Cardiothoracic Vascular Surgery)
PROC: B2151ZZ Fluoroscopy of Left Heart using Low Osmolar Contrast (ICD-10-PCS; 2018-07-08)
PROC: 4A023N7 Measurement of Cardiac Sampling and Pressure, Left Heart, Percutaneous Approach (ICD-10-PCS; 2018-07-08)
PROC: B2111ZZ Fluoroscopy of Multiple Coronary Arteries using Low Osmolar Contrast (ICD-10-PCS; 2018-07-08)
PROC: 04B Lower Arteries, Excision (ICD-10-PCS; principal; 2018-07-11 07:15)
PROC: 025T0ZZ Destruction of Left Pulmonary Vein, Open Approach (ICD-10-PCS; principal; 2018-07-11 07:15)
PROC: 5A1221Z Performance of Cardiac Output, Continuous (ICD-10-PCS; principal; 2018-07-11 07:15)
PROC: 02100Z9 Bypass Coronary Artery, One Artery from Left Internal Mammary, Open Approach (ICD-10-PCS; principal; 2018-07-11 07:15)
PROC: 021009W Bypass Coronary Artery, One Artery from Aorta with Autologous Venous Tissue, Open Approach (ICD-10-PCS; principal; 2018-07-11 07:15)
PROC: 02570ZK Destruction of Left Atrial Appendage, Open Approach (ICD-10-PCS; principal; 2018-07-11 07:15)
PROC: 02100Z8 Bypass Coronary Artery, One Artery from Right Internal Mammary, Open Approach (ICD-10-PCS; principal; 2018-07-11 07:15)
PROC: 03BC4ZZ Excision of Left Radial Artery, Percutaneous Endoscopic Approach (ICD-10-PCS; principal; 2018-07-11 07:15)
PROC: 025S0ZZ Destruction of Right Pulmonary Vein, Open Approach (ICD-10-PCS; principal; 2018-07-11 07:15)
PROC: 03L00CZ Occlusion of Right Internal Mammary Artery with Extraluminal Device, Open Approach (ICD-10-PCS; 2018-07-11 07:15)
PROC: 30233R1 Transfusion of Nonautologous Platelets into Peripheral Vein, Percutaneous Approach (ICD-10-PCS; 2018-07-11 07:15)
PROC: 30233N1 Transfusion of Nonautologous Red Blood Cells into Peripheral Vein, Percutaneous Approach (ICD-10-PCS; 2018-07-11 07:15)
DX: I25.110 Atherosclerotic heart disease of native coronary artery with unstable angina pectoris (principal); J95.821 Acute postprocedural respiratory failure; D62 Acute posthemorrhagic anemia; F05 Delirium due to known physiological condition; D68.9 Coagulation defect, unspecified; M96.831 Postprocedural hemorrhage of a musculoskeletal structure following other procedure; D69.6 Thrombocytopenia, unspecified; I48.0 Paroxysmal atrial fibrillation; I25.5 Ischemic cardiomyopathy; E66.9 Obesity, unspecified; E11.9 Type 2 diabetes mellitus without complications; H35.30 Unspecified macular degeneration; E78.00 Pure hypercholesterolemia, unspecified; G47.33 Obstructive sleep apnea (adult) (pediatric); J44.9 Chronic obstructive pulmonary disease, unspecified; Z95.5 Presence of coronary angioplasty implant and graft; Z79.01 Long term (current) use of anticoagulants; I10 Essential (primary) hypertension
CPT/HCPCS: 82435-PO; 82565-PO; 82947-PO; 83605-ER; 84132-PO; 84295-PO; 84484-ER; 84520-PO; 85014-ER; 96365; 96366; 97116-GP; 97161-GP; 97164-GP; 97166-GO; 97530-GO; 97535-GO; G0378; J0153; J0282; J0690; J1265; J1644; J1815; J2001; J2150; J2250; J2260; J2270; J2370; J2405; J2440; J2704; J2720; J2765; J2930; J3010; J3370; J3475; J3480; P9012; P9016; P9035; P9041; P9100; Q9967

== ENCOUNTER → 2018-07-31 | Outpatient (CLI) | payer OTHER | LOC: FIMAGING 10:02 | PROVIDERS: ATTEND Thoracic Surgery (Cardiothoracic Vascular Surgery) | DX: J98.11 Atelectasis (principal); Z95.1 Presence of aortocoronary bypass graft; Z86.79 Personal history of other diseases of the circulatory system ==

== ENCOUNTER → 2018-08-07 | Outpatient (CLI) | payer OTHER | LOC: FIMAGING 10:54 | PROVIDERS: ATTEND Thoracic Surgery (Cardiothoracic Vascular Surgery) | DX: J98.11 Atelectasis (principal); R60.9 Edema, unspecified; Z95.5 Presence of coronary angioplasty implant and graft ==